=== PATIENT | female | born 1995 | race Caucasian/White ===

== ENCOUNTER 2021-12-11 01:18 | Emergency (ER) | payer MEDICARE, MEDICAID, SELFPAY ==
--- NOTE | ~2021-12-11 | XR_ITS ---
EXAMINATION: XR chest 2V DATE: 12/11/2021 03:31 INDICATION: Dyspnea. TECHNIQUE: Frontal and lateral views of the chest were obtained. COMPARISON: None. FINDINGS: The chest demonstrates clear lungs without pneumonia, pleural effusion, or pneumothorax. Th e heart size is normal. IMPRESSION: 1. No acute cardiopulmonary disease. Reviewed, dictated and finalized at location A.
[2021-12-11 01:32] VITALS: BP 133/83; PULSE 79; RESP 19; O2SAT 100
[2021-12-11 01:39] VITALS: BP 127/75; PULSE 89; RESP 16; O2SAT 100
[2021-12-11 01:40] VITALS: PULSE 82
--- NOTE | 2021-12-11 02:10 | ECG_ITS ---
Measurements Intervals [place] Rate: 75 P: 59 LA: 149 QRS: 35 QRSD: 89 T: 38 QT: 350 QTc: 393 Interpretive Statements SINUS RHYTHM WITH SINUS ARRHYTHMIA NONSPECIFIC T-WAVE ABNORMALITY DELAYED R-WAVE PROGRESSION ABNORMAL ECG NO PREVIOUS ECG AVAILABLE FOR COMPARISON Electronically Signed On 12-11-2021 10:25:18 CDT by Hamilton Dejesus M.D.
--- NOTE | 2021-12-11 02:14 | ED.SOB ---
HPI - SOB/Dyspnea General Chief Complaint: Shortness of Breath/Dyspnea Stated Complaint: SOB, Chest tightness Time Seen by Provider: 12/11/21 01:54 Source: patient History of Present Illness HPI Narrative: Patient presents with shortness of breath and chest pain. Patient ports she has had symptoms for several weeks tonight was more severe so she came to the ER for further evaluation. Pain is a squeezing sensation associated with shortness of breath denies cough she does report a fever denies any nausea vomiting or diarrhea. Reports a history of asthma and she is been using her rescue inhaler with some improvement in her symptoms. She was seen in [place] emergency room yesterday for symptoms she does not remember what she was diagnosed with. Review of Systems Review of Systems: CONSTITUTIONAL: Denies fever, chills, or sweats. EYES: Denies visual changes, redness, or discharge. ENT: Denies rhinorrhea, congestion, sore throat, or otalgia. CARDIOVASCULAR: Denies palpitations, or edema. RESPIRATORY: Reports shortness of breath GASTROINTESTINAL: Denies abdominal pain, nausea, vomiting, or diarrhea. GENITOURINARY: Denies dysuria or hematuria. SKIN: Denies rash or itching. MUSCULOSKELETAL: Denies back pain, joint pain, or myalgia. NEUROLOGIC: Denies headache, numbness, dizziness, or weakness. PSYCHIATRIC: Denies anxiety or depression. All systems reviewed & are unremarkable except as noted in HPI and below Exam Narrative: GENERAL: Well-appearing, well-nourished, and in no acute distress. HEAD: Normocephalic, atraumatic. EYES: PERRLA and EOMI. ENT: Nares clear, no rhinorrhea or epistaxis. Mucous membranes moist. NECK: Supple. No masses. No JVD CHEST: Clear to auscultation. No respiratory distress. No wheezes rales or rhonchi HEART: Regular rate and rhythm. No murmur heard. Normal peripheral pulses. ABDOMEN: Soft, nontender, nondistended, normal active bowel sounds. EXTREMITIES: Normal range of motion. No edema. SKIN: Warm, dry, no rash. NEURO: No focal deficits. Alert and oriented x3. PSYCH: Normal mood and affect. Course Reevaluation(s) Reevaluation #1: Patient updated on results thus far. Patient reports breathing treatments did not help. Feels like she now has a sore throat and would like a strep swab which was ordered significant erythema or exudates appreciated on exam Date: 12/11/21 Time: 03:39 Reevaluation #2: Patient resting comfortably results plan reviewed with patient. Patient comfortable with outpatient plan. Date: 12/11/21 Time: 04:13 Vital Signs Vital signs: Vital Signs Pulse Rate 79 12/11/21 01:32 Respiratory Rate 19 12/11/21 01:32 Blood Pressure 133/83 12/11/21 01:32 Pulse Oximetry 100 12/11/21 01:32 Oxygen Delivery Room Air 12/11/21 01:32 Pulse Rate 82 12/11/21 04:36 Respiratory Rate 16 12/11/21 04:36 Blood Pressure 113/81 12/11/21 04:36 Pulse Oximetry 100 12/11/21 04:36 Oxygen Delivery Room Air 12/11/21 01:32 MDM - SOB/Dyspnea MDM Narrative Medical decision making narrative: H&P as above, vss, pt looks clinically well, exam with clear lungs, labs clinically unremarkable patient declined COVID swab, img without acute process, additional labs/img considered, symptomatic relief available as needed, on reevaluation pt continues to looks clinically well. Symptoms remain of unclear etiology, dns pneumonia, severe sepsis, airway compromise, dissection, pneumothorax, ACS, PE plan to tx/monitor as op w/ pcm f/u findings/plan discussed with pt, pt agree/comfortable with plan, return precautions given Lab Data Result diagrams: 12/11/21 02:18 12/11/21 02:52 Labs: Lab Results 12/11/21 12/11/21 12/11/21 Range/Units 02:18 02:52 02:52 WBC 9.5 (4.5-10.0) K/mm3 RBC 4.71 (4.2-5.4) M/mm3 Hgb 14.2 (12.0-15.0) g/dL Hct 43.2 (37.0-47.0) % MCV 91.7 (80-100) fl MCH 30.1 (26-34) pg MCHC 32.9 (32-36) g/dl RD
[2021-12-11 02:24] LABS: Basophils Percent Auto 0.4 % (0.2-1.2); Eosinophils Absolute Auto 0.1 K/mm3 (0-0.3); Eosinophils Percent Auto 1.1 % (0-4.4); Hematocrit 43.2 % (37.0-47.0); Hemoglobin 14.2 g/dL (12.0-15.0); Immature Granulocyte Absolute 0.03 K/mm3 (0.00-0.031); Immature Granulocyte Percent A 0.3 % (0-0.5); Lymphocytes Absolute Auto 2.87 K/mm3 (0.9-3.2); Lymphocytes Percent Auto 30.1 % (18.3-44.2); Mean Corpuscular HGB Conc 32.9 g/dl (32-36); Mean Corpuscular Hemoglobin 30.1 pg (26-34); Mean Corpuscular Volume 91.7 fl (80-100); Mean Platelet Volume 10.3 fl (7.4-10.4); Monocytes Absolute Auto 0.6 K/mm3 (0.1-0.6); Monocytes Percent Auto 6.6 % (2.6-8.5); Neutrophils Absolute Auto 5.9 K/mm3 (1.3-6.7); Neutrophils Percent Auto 61.5 % (45.5-73.1); Platelet Count Result 213 k/mm3 (150-375); Red Blood Count 4.71 M/mm3 (4.2-5.4); Red Cell Distribution Width 12.5 % (11.5-14.5); White Blood Count 9.5 K/mm3 (4.5-10.0)
[2021-12-11 03:02] VITALS: PULSE 80; RESP 21
[2021-12-11] MEDS: IPRATROPIUM BR 0.02% INH SOLN 0.5 MG/2.5 ML VIAL INHALATION (03:02)
[2021-12-11] MEDS: ALBUTEROL SULFATE NEB 2.5 MG/3 ML INH 5 MG INHALATION (03:02)
[2021-12-11 03:09] VITALS: PULSE 83; RESP 19
[2021-12-11 03:11] LABS: Alanine Aminotransferase 16 U/L (6-35); Albumin Level 3.9 g/dL (3.5-5.1); Alkaline Phosphatase 64 U/L (38-126); Anion Gap 6 mmol/L (8-16); Aspartate Amino Transferase 22 U/L (14-36); Bilirubin,Total 0.4 mg/dL (0.2-1.3); Blood Urea Nitrogen 11 mg/dL (7-17); Calcium 8.9 mg/dL (8.4-10.2); Carbon Dioxide 25 mmol/L (22-30); Chloride 109 mmol/L (98-107); Estimated CRCL calculation 96 ml/min; Estimated Glomerular Filt Rate > 60; Glucose 100 mg/dL (65-110); Potassium 3.7 mmol/L (3.4-5.0); Sodium 140 mmol/L (137-145)
[2021-12-11 03:23] LABS: Troponin I < 0.012 ng/mL (0.000-0.034)
[2021-12-11 04:36] VITALS: BP 113/81; PULSE 82; RESP 16; O2SAT 100
== END 2021-12-11 04:37 | disposition home or self-care (01) ==
PROVIDERS: Emergency Provider Emergency Medicine
DX: R06.02 Shortness of breath (principal); R94.31 Abnormal electrocardiogram [ECG] [EKG]
CPT/HCPCS: 36415; 71046; 80053; 84484; 85025; 87081; 87880; 93005; 94640; 99284

== ENCOUNTER 2024-08-31 22:18 | Emergency (ER) | payer MEDICARE, MEDICAID, SELFPAY ==
--- NOTE | ~2024-08-31 | XR_ITS ---
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 Comparison: 12/11/2021. RESULT: Lines, tubes, and devices: None. Lungs and pleura: Low volumes with crowding. Slight rotation. No focal consolidation, pleural effusi on, or pneumothorax. Cardiomediastinal silhouette: Stable. Other: No acute osseous or upper abdominal finding. IMPRESSION: No acute cardiopulmonary process. Reviewed, dictated and finalized at location K. [employer] G[employer]ERING EDITOR
--- NOTE | ~2024-08-31 | CT_ITS ---
EXAMINATION: CT brain wo con DATE: 08/31/2024 23:42 INDICATION: seziure? . TECHNIQUE: Computed tomography (CT) of the head was performed without intravenous contrast. The mA wa s adjusted according to patient size. Iterative reconstruction technique was employed. The dose-lengt h product was 605.33 mGy-cm. COMPARISON: None. FINDINGS: Exam limited by mild motion and nonstandard positioning. No acute intracranial hemorrhage or extra-axial fluid collection. No hydrocephalus, mass, or herniation. No acute ischemic infarct. Unremarkable dural venous sinus attenuation. No acute osseous abnormality. Left inferior frontal and ethmoid mucosal thickening. Bilateral maxillary mucosal thickening with air -fluid levels. The remaining aerated spaces are clear. IMPRESSION: No acute intracranial process. CT findings suggestive of acute bilateral maxillary sinusitis. Reviewed, dictated and finalized at location K. [employer] BUILDER
[2024-08-31 22:05] VITALS: BP 136/84; PULSE 86; RESP 15; TEMP 37.4; O2SAT 100
--- NOTE | 2024-08-31 22:29 | ECG_ITS ---
Test Date: 2024-08-31 22:46:22 Measurements Intervals [place] Rate: 78 P: 28 IN: 168 QRS: 11 QRSD: 89 T: 8 QT: 347 QTc: 396 Interpretive Statements SINUS RHYTHM DELAYED PRECORDIAL R/S TRANSITION BORDERLINE T WAVE ABNORMALITY- ANTERIOR LEADS BASELINE ARTIFACT- I, II, III, AVR, AVL, AVF, V1, V3 BORDERLINE ECG No previous ECG available for comparison Electronically Signed On 09-01-2024 06:48:12 DRIVER EXAMINER by Scott Mcnamara D.O.
[2024-08-31] MEDS: SODIUM CHLORIDE 0.9% IV 1,000 ML 999 ML IV CONT (22:40)
[2024-08-31 22:51] LABS: Basophils Absolute Auto 0.1 K/mm3 (0.0-0.1); Basophils Percent Auto 0.5 % (0.2-1.2); Eosinophils Absolute Auto 0.2 K/mm3 (0-0.3); Eosinophils Percent Auto 2.1 % (0-4.4); Hematocrit 42.4 % (37.0-47.0); Hemoglobin 14.2 g/dL (12.0-15.0); Immature Granulocyte Absolute 0.04 K/mm3 (0.00-0.031); Immature Granulocyte Percent A 0.4 % (0-0.5); Lymphocytes Absolute Auto 2.18 K/mm3 (0.9-3.2); Mean Corpuscular HGB Conc 33.5 g/dl (32-36); Mean Corpuscular Hemoglobin 29.3 pg (26-34); Mean Corpuscular Volume 87.4 fl (80-100); Mean Platelet Volume 9.3 fl (7.4-10.4); Monocytes Absolute Auto 0.5 K/mm3 (0.1-0.6); Monocytes Percent Auto 5.4 % (2.6-8.5); Neutrophils Absolute Auto 6.9 K/mm3 (1.3-6.7); Neutrophils Percent Auto 69.6 % (45.5-73.1); Platelet Count Result 236 k/mm3 (150-375); Red Blood Count 4.85 M/mm3 (4.2-5.4); Red Cell Distribution Width 13.2 % (11.5-14.5); White Blood Count 9.9 K/mm3 (4.5-10.0)
--- OUTSIDE RECORDS SUMMARY | 2024-08-31 22:56 | XMS_ITS | Data Portability ---
Author Organization [facility] Address [address] [place] [address] Assessment Encounter Date Assessment Date Assessment LastModified by Organization Details LastModified Time 04/25/2022 04/25/2022 Annual gynecological exam performed. Patient will come back in a year unless there are new symptoms. Not available 04/25/2022 11:57:56 Plan of Treatment Reminders Order Date Submit Date Provider Last Modified By Organization Details Last Modified Time Details Appointments None record ed. Lab None record ed. Referral None record ed. Procedures None record ed. Surgeries None record ed. Imaging None record ed. Medication Orders None record ed. Patient TargetsNo targets recorded. Patient InstructionsNo instructions recorded. Reason for Referral None Reported. 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 FINAL DIAGN OSIS: Negat miki for Intra epith elial Lesio n or Anil reid (NIL) . Elect kehinde queen angel d by Heidi Mariscal, CT on 05/01 at 6:57 AM ----- ----- ----- ----- ----- ----- ----- ----- ----- ----- ----- ----- ----- ----- ----- ----- ----- ---- COMME NT: Note: This speci men was revie wed by a Cytot echno logis t and/o r Patho logis t (as indic ated in this repor t) after evalu ation using the Thinp rep Imagi ng Syste m. CLINI SARAH INFOR MATIO N: Menst rual Statu s: LMP (if appli cable ): Clini sarah Histo ry/Pr eviou s Pap: Type of Neopl yogi (if appli cable ): Signi fican t Clini sarah Findi ngs: Other Histo ry: Hormo sumit (if appli cable ): PAP EDUCA KAIDEN L NOTE: The Pap Test is a scree graham test with an inher ent false negat miki rate. Liqui d-bas ed sampl ing may decre ase, but will not elimi aspen, false negat miki resul ts. A negat miki resul t does not precl ude the prese nce and/o r devel opmen t of disea se, since the prese nce of abnor mal cells in the sampl e depen ds on the locat ion of the lesio n and sampl ing techn ique. Justin nued regul ar scree graham is the best metho d of cance r preve ntion . If repor salina cytol ogic findi ng do not corre late with physi sarah and/o r histo rical findi ngs, furth er inves tigat ion is recom mikel d, as clini radha grace nted. Not Available [facility] [address] [place], [address], 05/01/2022 08:00:20 04/25/20 22 04/25/2022 CT/GC (PATRICK) , THINP REP VIAL chlamydia trachomatis, PCR Negati ve negati ve Not Available [facility] [address] [place], [address], 05/01/2022 08:00:21 04/25/20 22 04/25/2022 CT/GC (PATRICK) , THINP REP VIAL neisseria gonorrhoeae, PCR Negati ve negati ve Not Available [facility] [address] [place], [address], 05/01/2022 08:00:21 04/25/20 22 04/25/2022 TRICH OMONA S VAGIN JOHN PAUL (RRNA ) trichomonas vaginalis ribosomal RNA (rrna) Negati ve negati ve Not Available [facility] [address] [place], [address], 05/01/2022 08:00:22 Result Notes None recorded. Procedures Surgical History Date Name Laterality Status Provider Name and Address Organization Details Recorded Time 5 Dilation and Curettage completed [facility] 04/25/2022 12:14:11 Imaging Results None recorded. Procedure Notes None recorded. Medical Equipment None Reported. Allergies No known drug allergies Medications Name Sig Start Date Stop Date Status Note LastModified by Organization Details LastModified Time buspirone 5 mg tablet TAKE 1 TABLET BY MOUTH TWICE DAILY active Not Available Not Available No t Available ondansetron HCl 4 mg tablet TAKE 1 TABLET BY MOUTH EVERY 8 HOURS active Not Available Not Available No t Available sertraline 100 mg tablet TAKE 2 TABLETS BY MOUTH ONCE DAILY 04/25 completed Not Available Not Available Not Available famotidine 20 mg tablet TAKE 1 TABLET BY MOUTH EVERY 12 HOURS FOR 10 DAYS active Not Available Not Available No t Available ergocalcife rol (vitamin D2) 1,250 mcg (50,000 unit) capsule TAKE 1 CAPSULE BY MOUTH ONCE A WEEK active Not Available Not Available No t Available hydroxyzine pamoate 25 mg capsule TAKE 1 TO 3 CAPSULES BY MOUTH ONCE DAILY NEEDED FOR ANXIETY AND FOR SLEEP active Not Available Not Available No t Available bupropion HCl XL 300 mg 24 hr tablet, extended release TAKE 1 TABLET BY MOUTH ONCE DAILY IN THE MORNING active Not Available Not Available No t Available bupropion HCl XL 150 mg 24 hr tablet, extended release TAKE 1 TABLET BY MOUTH ONCE DAILY IN THE MORNING WITH 300MG TABLET 04/25 completed Not Available Not Available Not Available topiramate 50 mg tablet TAKE 1 TABLET BY MOUTH ONCE DAILY active Not Available Not Available No t Available nitrofurant oin monohydrate /macrocryst als 100 mg capsule TAKE 100MG BY ORAL ROUTE EVERY 12 HOURS FOR 7 DAYS. 04/25 completed Not Available Not Available Not Available Vitals Date Recorded Body height Body weight Systolic blood pressure Diastolic blood pressure Provider Name and Address Organization Details Last Updated DateTime 04/25/2022 161.29 cm 07303.1 g 130 mm[Hg] 80 mm[Hg] Estella Vicente Duran [facility] 04/25/2022 12:10:15 Social History Question Answer Notes LastModified by Organizat ion Details LastModified Time Tobacco Smoking Status Never Smoker [facility] 04/25/2022 12:13:50 Do You Have An Advance Directive? Yes Information not available 04/25/2022 What Is Your Level Of Alcohol Consumption? None Information not available 04/25/2022 Are You Blind Or Do You Have Difficulty Seeing? No Information not available 04/25/2022 What Is Your Level Of Caffeine Consumption? None Information not available 04/25/2022 Are You Deaf Or Do You Have Serious Difficulty Hearing? No Information not available 04/25/2022 What Type Of Diet Are You Following? REGULAR Information not available 04/25/2022 Do You Use Your Seat Belt Or Car Seat Routinely? Yes Information not available 04/25/2022 Do You Have Smoke And Carbon Monoxide Detectors In Your Home? Yes Information not available 04/25/2022 Do You Feel Stressed (tense, Restless, Nervous, Or Anxious, Or Unable To Sleep At Night)? [id number] Information not available 04/25/2022 Do You Use Any Illicit Or Recreational Drugs? No Information not available 04/25/2022 Sex: Unknown Functional Status Question Answer Note LastModified by Organizat ion Details LastModified Time Do you have difficulty walking or climbing stairs? No Information not available 04/25/2022 Are you able to walk? YESWOREST Information not available 04/25/2022 Are you able to care for yourself? Yes Information not available 04/25/2022 Do you have difficulty dressing or bathing? No Information not available 04/25/2022 What is your exercise level? Moderate Information not available 04/25/2022 Mental Status None recorded. Family History Relationship Description Onset Age of this Age Resolved Age Notes LastModified by Organization Details LastModified Time Mother Asthma Not available 12:12:39 Mother Hypertensive disorder Not available 2021 12:12:45 Maternal Grandmother Heart disease Not available 2021 12:12:52 Paternal Grandmother Malignant tumor of lung Not available 2021 12:13:00 Maternal Aunt Malignant tumor of cervix Not available 2021 12:13:09 Maternal Aunt Malignant neoplasm of uterus Not available 2021 12:13:18 Paternal Uncle Malignant tumor of lung Not available 2021 12:13:28 Medical History Condition Response Anxiety Disorder Y Depression/ depression Y Gynecological History Statement/Question Response Abnormal Pap N Sexually Active? Y STIs/STDs Y Menses Monthly N Age of first menstrual cycle 10 HPV Vaccine N Date of Last Pap Smear Sexual Problems? N Current Control Method IUD LMP Unknown Obstetrics History GPAL:G 2 P 0 0 1 1 Type Value Spontaneous 1 Living 1 Total 2 Past Encounters Encounter ID Performer Location Encounter Start Date Encounter Closed Date Diagnosis/Indication Diagnosis SNOMED-CT Code Diagnosis ICD10 Code Diagnosis Note [id number] [employer]UM[employer] [place] [address] [address] 04/25/2022 11:26:13 04/25/2022 12:17:26 Gynecologic examination 83035912 Z01.419 Take Calcium with Vitamin D 1200mg daily if not receiving in daily diet. It is strongly advised to have an annual flu shot and up can obtain at most pharmacies . If you have not had a TDap shot in the last 10 years you should obtain one as well. Discussed with patient & provided with informatio n regarding Gardisil vaccine to prevent the 4 strains for HPV that cause cervical cancer if under age 26. Encourage safe sexual practices, to use condoms and limit partners if not already in a monogamous relationsh ip. Do monthly self breast exams. Have mammogram yearly or every other year depending on family history. BRCA testing is now available for patients with strong genetic history of female cancer. If interested contact the office. Engage in daily exercise of low impact aerobic exercise 45-60 minutes 4-5 times weekly. Avoid tobacco and illicit drugs as well as using moderation with alcohol intake less than 1-2 8 oz beverages daily. This lifestyle behavior pattern will lead to less health conditions and longer life span. If BMI greater than 25 weight watchers or dietary consult advised. Patient received above instructio ns, and questions have been answered. If you have any questions please call or respond to this email. Patient was made aware of the patient portal and may obtain a paper copy of today's plan if desired. Pap/hpv sent STD Screen sent Genetic Screen discussed Colon Screen na Dexa Screen na Routine Labs PCPMammo Adis Mirena IUD prevents for up to 8 years, and also helps with heavy periods for up to 5 years in women who choose an IUD for control. Health Concerns Section Related Observation LastModified by Organization Detai ls LastModified Time None Recorded Concern Status LastModified by Organization Details LastModified Time None Recorded Advance Directives Directive Y: Payers Encounter Date Sequence Insurance Name Policy Number Policy Biggs Covered Member ID Biggs Member ID Guarantor Name 04/25/2022 2 [place] [employer] Sae Alvarez [id number] Sae Alvarez 04/25/2022 1 [place] Sae Alvarez [id number] Sae Alvarez Notes Date Note Type Note Provider Name and Address Organization Details Recorded Time 04/25/2022 text/html Annual GYNReport ed bypatient.History: no gynecologic complaints Menstrual cycle:Normal menses (Amenorrheic per IUD) Urinary symptoms:No hematuria; No incontinence Vulva:No genital lesion Vagina:Normal vaginal discharge Breast:No breast pain; No breast lump; No nipple discharge Current Contraception:Sati sfied with current contraception; Intrauterine device (iud) Sexual complaints:No sexual complaints; No pain during intercourse; Normal libido Menopausal Symptoms:No menopausal symptoms; Normal vaginal lubrication Psychological symptoms:No depression; No anxiety; No PMDD Preventive measures:Encourage self breast examination; Encourage regular exercise; Encourage no tobacco use; Encourage regular mammograms starting age 40; Followed with yearly pap smears Viki Corbett, [facility]- [address], [place], [address], [facility] 04/25/2022 17:22:16 OBGyn Episode Ob Episode Information Episode Created Date Number of Fetuses Patient Bloodtype Patient rh Status Prepregnancy Weight lbs Domestic Partner Domestic Partner Phone Father Name Lockstitch Waistband Setter Status 04/25/20 22 1 CLOSED Fetus Data First Name Last Name Admitted to NICU Weight (g) Sex Living Outcome Pediatric Complications Fetus ID Race Codes Race Delivery Type [id number] Vaginal Delivery Charlie Calculation Initial Charlie Date Initial Exam Date Initial Exam Provider Initial Ultrasound Date Last Menstrual Period Date Ultra Sound Weeks Gestation 0 Eighteen To Twenty Week Charlie Update Ultra Sound Date Fundal Height At Umbil Quickening Date Ultra Sound Latest Weeks Gestation Final Charlie Confirmed By Final Charlie Confirmed Date Final Charlie Date Ultra Sound Latest Days Gestation 0 0 Menstrual History Last Menstrual Date Menses Monthly On Bcp Conception Prior Menses Frequency Hcg Plus Date Menarche Onset Age Delivery Information Delivery Date Delivery Type Labor Anesthesia Weeks Gestation Incision Type Labor Labor Length Hrs Delivered By Post Complications Tubal Sterilization Discharge Date Comments 7 Discharge Information Feeding Method Contraceptive Method Maternal HG B and HCT Levels Ob Episode Information Episode Created Date Number of Fetuses Patient Bloodtype Patient rh Status Prepregnancy Weight lbs Domestic Partner Domestic Partner Phone Father Name Lockstitch Waistband Setter Status 04/25/20 22 1 CLOSED Fetus Data First Name Last Name Admitted to NICU Weight (g) Sex Living Outcome Pediatric Complications Fetus ID Race Codes Race Delivery Type , Spontane ous [id number] Charlie Calculation Initial Charlie Date Initial Exam Date Initial Exam Provider Initial Ultrasound Date Last Menstrual Period Date Ultra Sound Weeks Gestation 0 Eighteen To Twenty Week Charlie Update Ultra Sound Date Fundal Height At Umbil Quickening Date Ultra Sound Latest Weeks Gestation Final Charlie Confirmed By Final Charlie Confirmed Date Final Charlie Date Ultra Sound Latest Days Gestation 0 0 Menstrual History Last Menstrual Date Menses Monthly On Bcp Conception Prior Menses Frequency Hcg Plus Date Menarche Onset Age Delivery Information Delivery Date Delivery Type Labor Anesthesia Weeks Gestation Incision Type Labor Labor Length Hrs Delivered By Post Complications Tubal Sterilization Discharge Date Comments 5 Discharge Information Feeding Method Contraceptive Method Maternal HG B and HCT Levels
--- OUTSIDE RECORDS SUMMARY | 2024-08-31 22:57 | XMS_ITS | Patient Health Summary ---
Author Organization [facility] Address [address] [place] [address] Care Team Providers Care Charge Manager Name Role Phone Joanne Wharton MD Primary Care Provider [phone] Note from [facility],non-owned Affiliates and Associated Physician Practices is amultiple site organization consisting of ambulatory clinics and hospital sitesin [place], [place], [place] and [place]. This disclosure is being madepursuant to the Care Everywhere program and may not contain all information available regarding this patient. Last updated 18.[facility] [employer] Allergies No known active allergies Medications * Be aware that medications may not be up to date on this document. Alwaysverify current medications with the patient. * sertraline (ZOLOFT) 100 MG tablet Take 150 mg by mouth once daily. 1 1/2 tabs * drospirenone-ethinyl estradiol (KIMBER) 3-0.02 MG tablet Take 1 Tab by mouth once daily. * ALBUTEROL IN Inhale 3 Puffs by mouth as needed. Active Problems Problem Noted Date Diagnosed Date Transient alteration of awareness 12/11/2012 Social History Tobacco Use Types Packs/Day Years Used Date Smoking Tobacco: Never Assessed Sex and Gender Information Value Date Recorded Sex Assigned at Not on file Gender Identity Not on file Sexual Orientation Not on file Last Filed Vital Signs Vital Sign Reading Time Taken Comments Blood Pressure 102/80 12/11/2012 10:36 AM CDT Pulse - - Temperature - - Respiratory Rate - - Oxygen Saturation - - Inhaled Oxygen Concentration - - Weight 69.3 kg (152 lb 12.8 oz) 013 10:36 AM CDT Height 160.5 cm (5' 3.19 ) 12/11/2012 1 0:36 AM CDT Body Mass Index 26.91 12/11/2012 10:36 AM CDT Procedures * EEG(Performed 12/24/2012) Performed for Seizure (HCC) * GROSS + MICRO EXAM(Performed 1995) Results * EEG (12/24/2012 12:00 PM CDT) 12/24/2012 12:0 0 PM CDT Narrative [facility] - 12/26/2012 1:32 PM CDT A scan was deleted from the Results section by S Interface [[id number]] on 12/26/2012 at 1:32 PM (File: [id number]) Transcriptions Santos Pickard MD - 12/24/2012 7:50 PM CDT [address] [address] CLINICAL NEUROPHYSIOLOGY NAME: SAE SALGADO : 1995 AD[address]: [address] [place] [address] UNIT #: [id number] CSN #: [id number] DATE OF TEST: 12/24/2012 COMPLIANCE PROJECT MANAGER: Santos Pickard MD This is an EEG being performed with sleep deprivation in a young man witha history of defiant behavior and recent episodes of shaking of the handsand staring. There were 3 clusters back in November. He is on Zoloft andTrileptal at the time of the recording. The recording begins with the patient in a wakeful state. There is areactive and symmetric posterior dominant rhythm with frequencies of 9-10 Hz and amplitudes of 30-50 mV. A well-organized anteroposterior gradient isalso identified. In an extended period of drowsiness there is attenuation in the waking background with an increase in higher amplitude and sharply contouredrhythmic theta and at times delta activity seen bifrontally. Also noted are lowerbeta rhythms seen posteriorly. No formal sleep state is entered. Hyperventilation produces a modest slowing of the waking backgroundwithout any epileptiform accompaniment. Photic stimulation produces a modestdriving response at middle frequencies bilaterally. IMPRESSION: This is a normal EEG for age in the wakeful and drowsy state. Nolocalizing, lateralizing or epileptiform features are present. Clinical correlationis suggested as this does not exclude seizure as an etiology for thechild's shaking events. Dictated By: Santos Pickard MD SG/MedQ JOB ID: [id number] cc: Devante Pitt MD CLINICAL NEUROPHYSIOLOGY Document, Scanned - 12/26/2012 1:32 PM CDT Milka Davis MD NEUROLOGY ORDERABLES [facility] * GROSS + MICRO EXAM (1995 3:00 PM PROMOTIONAL MARKETING ANALYST) Result CASE NUMBER [id number] [facility] PATH REPORT Comment: ORDERING PHYSICIAN VIRGINIA ROSENTHAL SPECIMEN TYPE Placenta CLINICAL HISTORY GROSS DESCRIPTION CLINICAL DATA Gestational Age 33 Weight 2.5 RDS X Facies Congenital Anomalies MOTHER Age 19 Grav 1 Para 1 Ab 0 Hypertension Bleeding X Oligohydramnios Infection Polyhydramnios Previous Stillbirths Labor/Duration Diabetes Additional Comments 50% abruptio. The specimen labeled Gera, Girl and placenta and cord is received fresh and consists of a placenta measuring 13.9 x 14.1 cm. The placental thickness is 3.0 cm. The umbilical cord measures 21.5 cm. in length and 1.0 cm. in diameter. There are no true or false knots. The umbilical cord surface is white-harrell and glistening. The umbilical cord attachment is eccentric with the nearest margin at 2.8 cm. There are three umbilical cord vessels. The membranes are torn. The shortest length is 2.3 cm. The longest length is approximately 18 cm. Small areas of blood clot are found attached to the extracoreal membranes. The attachments are circumvallate (approximately 300 degrees). The appearance of the membranes is pink-harrell and glistening. There are extensive areas of fibrin deposition found on the maternal surface adjacent to the attachment of the circumvallate membranes. The surface is blue-quinn with extensive areas of fibrin deposition. It has a concave appearance. The maternal surface is convexed and consists of boggy cotyledons. There is one area of laceration on the maternal surface. Section surfaces confirms the presence of extensive fibrin deposition at the surface and near the attachments of the membranes. The placental weight after trimming is approximately 365 grams. Game Room Attendant sections of the placenta near the membrane attachment are submitted as A1 and A2 . Game Room Attendant sections of the umbilical cord and membranes are submitted as A3 . Game Room Attendant sections of the placenta from the middle of the placenta is submitted as A4 . (SE/akn) [facility], [address] [place] [address] MICROSCOPIC DESCRIPTION 3 H/E Sections of the placenta show villi with maturation consistent with a 33 week gestation. However, calcification is increased for this gestational age. Perivillous fibrin deposition is present, particularly in the extrachorial portion of the placental disk. Sections of the umbilical cord show a three vessel cord with calcified omphalomesenteric remnants. (SE/mjma) DIAGNOSIS DIAGNOSIS PLACENTA, CORD AND MEMBRANES 1) Circumvallate placenta (33 weeks gestation, weight 365 g, feto-placental ratio 6.6 expected 5.3-6.0). 2) Increased calcification (see microscopic description). 3) Extrachorial fibrin deposition. 4) Calcified omphalomesenteric remnants. [employer]ision Agriculture Technician Soco Grayson RESIDENT IN PATHOLOG Hemal aGbriel M.D. PATHOLOGIST Dick Burks M.D. ELECTRONICALLY Dick Garcia MISCELLANEOUS SAMPLES / Unknown 1995 3:00 PM PROMOTIONAL MARKETING ANALYST 1995 9:18 AM PROMOTIONAL MARKETING ANALYST Historical Provider LAB - PATHOLOGY/C YTOLOGY ORDERABLES [facility] PATH REPORT Care Teams Charge Manager Relationship Specialty Start Date End Date Joanne Wharton MD [address] [place] [address] [place] [address] PCP - General Pediatrics 12/10/12
--- OUTSIDE RECORDS SUMMARY | 2024-08-31 22:57 | XMS_ITS | Clinical Summary ---
Author Organization [facility] Address [address] [facility] [place] [address] Care Team Providers Care Cone Classifier Tender Name Role Phone Joanne Wharton MD Primary Care Provider Source Comments [facility],non-owned Affiliates and Associated Physician Practices is amultiple site organization consisting of ambulatory clinics and hospital sitesin [place], [place], [place] and [place]. This disclosure is being madepursuant to the Care Everywhere program and may not contain all information available regarding this patient. Last updated 18.[facility] Allergies No known active allergies Medications * Be aware that medications may not be up to date on this document. Alwaysverify current medications with the patient. Medication Sig Dispensed Refills Start Date End Date Status sertraline (ZOLOFT) 100 MG tablet Take 150 mg by mouth once daily. 1 1/2 tabs Active drospirenone-ethinyl estradiol (KIMBER) 3-0.02 MG tablet Take 1 Tab by mouth once daily. Active ALBUTEROL IN Inhale 3 Puffs by mouth as needed. Active Active Problems Problem Noted Date Diagnosed Date [...] Mass Index 26.91 12/11/2012 10:36 AM CDT Plan of Treatment Health Maintenance Due Date Last Done Comments PAP SMEAR 1995 HIV SCREENING 2010 HEPATITIS C SCREENING 06/25/2013 DTAP/TDAP/TD VACCINES (1 - Tdap) 2014 HEPATITIS B VACCINE (1 of 3 - 19+ 3-dose series) 2014 COVID-19 VACCINE (1 - 2023-2 5 season) 2024 INFLUENZA VACCINE (#1) 2024 DEPRESSION SCREENING 07/08/2024 ZOSTER VACCINE (1 of 2) 2045 HIB VACCINE Aged Out No longer eligi ble based on patient's age to complete this topic HPV VACCINE Aged Out No longer eligi ble based on patient's age to complete this topic MENINGOCOCCAL (Group B) VACCINE Aged Out No longer eligible based on patient's age to complete this topic MENINGOCOCCAL VACCINE Aged Out No shelbi rod eligible based on patient's age to complete this topic PNEUMOCOCCAL VACCINE Aged Out No long er eligible based on patient's age to complete this topic Care Teams Cone Classifier Tender Relationship Specialty Start Date End Date Joanne Wharton MD [address] [place] [id number] PCP - General Pediatrics 12/10/12
--- OUTSIDE RECORDS SUMMARY | 2024-08-31 22:57 | XMS_ITS ---
Author Organization [facility] Address [address] [place] [address] Care Team Providers Care Building Maintenance Worker Name Role Phone Buster Gomez Primary Care Provider [phone] Allergies No Known Allergies REASON FOR VISIT f/u & paperwork Medications Medication SIG (Take, Route, Frequency, Duration) Notes Start Date End Date Status Zoloft 50 MG 1.5 tablet Orally Once a day for 30 days Active ARIPiprazole 10 MG 1 tablet Orally Once a day for 30 days Active Albuterol Sulfate (sensor) 108 (90 Base) MCG/ACT 1-2 puffs as needed Inhalation every 4 hrs for 30 days Active Topiramate has continued to take Not-Taking busPIRone HCl 5 MG Take 1 tablet by mouth twice daily for 30 please have contact office to have appointment scheduled Not-Taking hydrOXYzine Pamoate 25 MG 1-2 capsule at night Orally Once a day for 30 days As needed sleep Active Vitamin D (Cholecalciferol) 25 MCG (1000 UT) 1 tablet Orally Once a day for 30 days Active Social History Tobacco Use: Social History Observation Description Date Details (start date - stop date) Never Smoker NA - NA Sex Assigned At : Social History Observation Description Sex Assigned At Female Alcohol Screen (Audit-C) Question Answer Notes Did you have a drink containing alcohol in the p ast year? No Points 0 Interpretation Negative Tobacco Control (Standard) Question Answer Notes Tobacco use: Nonsmoker Vital Signs Weight 199.4 lbs 03/31/2024 Height 65 in 03/31/2024 BMI 33.18 kg/m2 03/31/2024 Blood pressure systolic 112 mm Hg 03/31/20 Blood pressure diastolic 80 mm Hg 024 Heart Rate 87 /min 03/31/2024 Oximetry 99 % 03/31/2024 Respiratory Rate 16 /min 03/31/2024 Encounters Encounter Location Date Provider Diagnosis [address] [place] [address] 03/31/2024 Buster Gomez MUSTAPHA (generalized anxiety disorder) F41.1 ; Viral URI with cough J06.9 ; Mild depression F32.0 ; Cerebral palsy G80.9 and Nutritional counseling Z71.3 Assessments Encounter Date Diagnosis (ICD Code) Assessment Notes Treatment Notes Treatment Clinical Notes Section Notes 03/31/2024 MUSTAPHA (generalized anxiety disorder) (ICD-10 - F41.1) 03/31/2024 Viral URI with cough (ICD-10 - J06.9) 03/31/2024 Mild depression (ICD-10 - F32.0) 03/31/2024 Cerebral palsy (ICD-10 - G80.9) FORM COMPLETED FOR MCT 03/31/2024 Nutritional counseling (ICD-10 - Z71.3) DISCUSS WEIGHT LOSS AT F/U APPT Plan Of Treatment Medication Medication Name Sig Start Date Stop Date Notes Zoloft 50 MG 1.5 tablet Orally On ce a day for 30 days ARIPiprazole 10 MG 1 tablet Orally Once a day for 30 days hydrOXYzine Pamoate 25 MG 1-2 capsule at night Orally Once a day for 30 days Next Appt Details Follow Up: 2 Weeks, Reason: FLU & COVID SHOTS, DISCUSS WT LOSS Progress Notes * Clifton ALVAREZOB: 5 (28 yo F)Acc No.[id number]:03/31/2024 Progress Notes Patient: Trinity JOHNHarmanSae Provider: Garrison Gomez :1995 A ge:28 Y S ex:Female Date:03/31/2024 Address:[address] [place], [place] [id number] Check In:10:18 AM SALVAGE CLERK Subjective: * Chief Complaints: * F /u & paperwork * HPI: I nterim History: meds still working well.. HAS UR CONGESTION FOR TWO DAYS. COUGH. YELLOW SPUTUM. TEMP TO 100 2 NIGHTS AGO. DAUGHER WAS ILL. 7 Y/O. HX ASTHMA. WOULD LIKE COVID AND FLU SHOT WOULIKE TO DISCUSS WT LOSS MEDS ALREADY DOING IN SHAPE. Emergency room visit N o. Was hospitalized N o. D epression Screening: PHQ-9 L ittle interest or pleasure in doing things?Several days F eeling down, depressed, or hopeless N ot at all T rouble falling or staying asleep, or sleeping too much N ot at all F eeling tired or having little energy S everal days P oor appetite or overeating S everal days F eeling bad about yourself or that you are a failure, or have let yourself or your family down N ot at all T rouble concentrating on things, such as reading the newspaper or watching television N ot at all M oving or speaking so slowly that other people could have noticed; or the opposite, being so fidgety or restless that you have been moving around a lot more than usual N ot at all T houghts that you would be better off or of hurting yourself in some way N ot at all T otal Score 3 I nterpretation M inimal Depression S creening: [place] Suicide Severity Rating Scale (LF) D o you want to initiate with S creener form 1 . Wish to be : Have you wished you were or wished you could go to sleep and not wake up? N o 2 . Suicidal Thoughts: Have you actually had any thoughts of killing yourself? N o 6 . Suicide Behaviour: Have you ever done anything,started to do anything, or prepared to end your life? N o I nterpretation: L ow Risk C SSRS Interpretation and Follow Up Plan: CSSRS Interpretation and Follow Up Plan. CSSRS Interpretation and Follow Up Plan C SSRS Screen documented using SF Y es M oderate or High risk requires selection of a follow up plan C SSRS No/Low: intervention not needed at this time * ROS: B asic ROS: Admits F atigue. A dmits F ever. A dmits P sychiatric Condition. * Medical History: * Surgical History: D enies Past Surgical History * Hospitalization/Major Diagno stic Procedure: c hild 2017 * Family History: F ather: alive. M other: alive. 1 brother(s) . 1 daughter(s) . . Paternal side- austim, possible other conditions that are unknown . * Social History: P rimary Social History: L iving Arrangement L iving Arrangement: D ependent Living L iving with: P arent(s) I s this a supportive environment? Y es Alcohol Use A lcohol Use Frequency: N ever Illicit Substance Usage I llicit Substance Usage: N o Employment Status E mployment Status: O n Disability Leisure: playing with daughter, favorite show at first sight. P ast Medication Use: D o you use nicotine other than cigarettes?: No. Past Psychiatric Medications: Depakote. Past Psychiatric Diagnoses: Anxiety disorder. T obacco Use: T obacco Control (Standard) T obacco use: N onsmoker S exual History: R elationship: engaged. D rugs/Alcohol: D rugs H ave you used drugs other than those for medical reasons in the past 12 months? N o Alcohol Screen (Audit-C) D id you have a drink containing alcohol in the past year? N o P oints 0 I nterpretation N egative Caffeine I ntake: m ore than [address] pepper Do you smoke marijuana?: Admits- marijuana vapes occasionally at night. Do you drink alcohol?: No. H ousehold: H ousehold M arital status: s liv N umber of adults in household: 4 N umber of children in household: 1 L evel of education: f inished high school M iscellaneous: M ethod of learning P referred method of learning: H earing * Medications: T akingVitamin D (Cholecalciferol) 25 MCG (1000 UT) Tablet 1 tablet Orally Once a day Albuterol Sulfate (sensor) 108 (90 Base) MCG/ACT Aerosol Powder Breath Activated 1-2 puffs as needed Inhalation every 4 hrs hydrOXYzine Pamoate 25 MG Capsule TAKE 1 TO 2 CAPSULES BY MOUTH ONCE DAILY IF NEEDED FOR ANXIETY AND FOR SLEEP Orally Once a day Zoloft 50 MG Tablet 1.5 tablet Orally Once a day ARIPiprazole 10 MG Tablet 1 tablet Orally Once a day Taking Vitamin D (Cholecalciferol) 25 MCG (1000 UT) Tablet 1 tablet Orally Once a day Taking Albuterol Sulfate (sensor) 108 (90 Base) MCG/ACT Aerosol Powder Breath Activated 1-2 puffs as needed Inhalation every 4 hrs Taking hydrOXYzine Pamoate 25 MG Capsule TAKE 1 TO 2 CAPSULES BY MOUTH ONCE DAILY IF NEEDED FOR ANXIETY AND FOR SLEEP Orally Once a day Taking Zoloft 50 MG Tablet 1.5 tablet Orally Once a day Taking ARIPiprazole 10 MG Tablet 1 tablet Orally Once a day Not- TakingbusPIRone HCl 5 MG Tablet Take 1 tablet by mouth twice daily , Notes to Pharmacist: please have contact office to have appointment scheduledTopiramate , Notes to Pharmacist: has continued to takeNot-Taking busPIRone HCl 5 MG Tablet Take 1 tablet by mouth twice daily , Notes to Pharmacist: please have contact office to have appointment scheduledNot-Taking Topiramate , Notes to Pharmacist: has continued to take * Allergies: N .K.D.A.no[Allergies Verified] Objective: * Vitals: I nitials: dt, Wt:199.4, Ht: 65, BMI:33.18, BP:112/80, HR:87, Oxygen sat %:99, RR:16, LMP: iud, Pain scale:8. * Examination: G eneral Examination: GENERAL APPEARANCE: w ell developed, well nourished, in no acute distress. HEAD: n ormocephalic, atraumatic. EYES: P ERRLA, sclera and conjunctiva clear. EARS External ears intact. NOSE: n sky patent, no lesions, septum intact. ORAL CAVITY: m ucosa moist. THROAT: n o erythema, no exudate, pharynx normal. NECK/THYROID: n o JVD, no goiter. SKIN: w arm and dry, no rashes. HEART: r egular rate and rhythm, no murmurs. LUNGS: r espirations regular and easy, clear to auscultation bilaterally. ABDOMEN: b owel sounds present, soft, nontender, nondistended, no masses palpable, no organomegaly . MUSCULOSKELETAL: n o joint deformity, swelling, redness, or warmth , LEROY upper and lower extremities. EXTREMITIES: n o clubbing, cyanosis, or edema. NEUROLOGIC: c ranial nerves 2-12 grossly intact. Assessment: * Assessment: 1. G AD (generalized anxiety disorder) - F41.1 2 . V iral URI with cough - J06.9 (Primary) 3 . M ild depression - F32.0 4 . C erebral palsy - G80.9 5 . N utritional counseling - Z71.3 Plan: * Treatment: 2. M ild depression Refill ARIPiprazole Tablet, 10 MG, 1 tablet, Orally, Once a day, 30 days, 30 Tablet, Refills 2.? 3. C erebral palsy Clinical Notes: FORM COMPLETED FOR MCT 4. N utritional counseling Clinical Notes: DISCUSS WEIGHT LOSS AT F/U APPT * Recommended Wellness and Pre vention Guidelines: * S tatus A lert L ast Done N ext Due A ction Taken N ONCOMPLIANT A sthma symptom assessment - 0 03/31/2024 - N ONCOMPLIANT C ervical cancer screening - 0 03/31/2024 - N ONCOMPLIANT I nfluenza vaccine (high risk) 1 07/15/2022 0 03/31/2024 - * Procedure Codes: 3 008F BODY MASS INDEX [id number] MEDICAL NUTRITION, INDIV, [id number] TOBACCO [id number] [facility] VISIT ESTABLISHED PATIENT * Preventive Medicine: Counseling: C are goal follow-up plan: BMI management provided Y es Above Normal BMI Follow-up L ifestyle education regarding diet * Follow Up: 2 Weeks (Reason: FLU & COVID SHOTS, DISCUSS WT LOSS) * * Sign off status: Completed true * Provider: Garrison Gomez Date: 0 03/31/2024 Generated for Anne Marie parisi/Malcolm/Carlos on: 0 08/31/2024 10:56 PM SALVAGE CLERK History and Physical Notes * HPI (History of Present Illness) Category Sub-Category Detail Notes Category Not es Interim History Was hospitalized No Emergency room visit No Depression Screening PHQ-9 Little inte rest or pleasure in doing things: Several days Feeling down, depressed, or hopeless: No t at all Trouble falling or staying asleep, or sl eeping too much: Not at all Feeling tired or having little energy: S everal days Poor appetite or overeating: Several day s Feeling bad about yourself o r that you are a failure, or have let yourself or your family down: Not at all Trouble concentrating on thi ngs, such as reading the newspaper or watching television: Not at all Moving or speaking so slowly that other people could have noticed; or the opposite, being so fidgety or restless that you have been moving around a lot more than usual: Not at all Thoughts that you would be b ryley off or of hurting yourself in some way: Not at all Total Score: 3 Interpretation: Minimal Depression Screening [place] Suicide Sev erity Rating Scale (LF) Do you want to initiate with: Screener form 1. Wish to be : Have you wished you were or wished you could go to sleep and not wake up?: No 2. Suicidal Thoughts: Have you actually had any thoughts of killing yourself?: No 6. Suicide Behavior Question: Have you ever done anything,started to do anything, or prepared to end your life?: No Interpretation:: Low Risk Do Not Use CSSRS Interpretation and Follow Up Plan CSSRS Interpretation and Follow Up Plan CSSRS Screen documented using SF: Yes Moderate or High risk requir es selection of a follow up plan: CSSRS No/Low: intervention not needed at this time Examination Category Sub-Category Detail Notes Category Not es General Examination GENERAL APPEARANCE: well dev eloped, well nourished, in no acute distress HEAD: normocephalic, atrau matic EYES: PERRLA, sclera and c onjunctiva clear EARS External ears intact NOSE: nares patent, no les ions, septum intact THROAT: no erythema, no exud ate, pharynx normal NECK/THYROID: no JVD, no goiter HEART: regular rate and rhy thm, no murmurs LUNGS: respirations regular and easy, clear to auscultation bilaterally ABDOMEN: bowel sounds present , soft, nontender, nondistended, no masses palpable, no organomegaly NEUROLOGIC: cranial nerves 2-12 grossly intact SKIN: warm and dry, no clayton hes EXTREMITIES: no clubbing, cyanosi s, or edema MUSCULOSKELETAL: no joint deformity, swelling, redness, or warmth , LEROY upper and lower extremities ORAL CAVITY: mucosa moist
--- OUTSIDE RECORDS SUMMARY | 2024-08-31 22:57 | XMS_ITS ---
Author Organization [facility]ly [facility] Address [address] [place] [address] Care Team Providers Care Control Engineer Name Role Phone Buster Gomez Primary Care Provider [phone] Tha Aparicio Unavailable [phone] REASON FOR VISIT PRAPARE Assessment Social History Tobacco Use: Social History Observation Description Date Details (start date - stop date) Never Smoker NA - NA Sex Assigned At : Social History Observation Description Sex Assigned At Female Alcohol Screen (Audit-C) Question Answer Notes Did you have a drink containing alcohol in the p ast year? No Points 0 Interpretation Negative PRAPARE Question Answer Notes Date Completed/Updated: 06/16/2024 What is your current housing situation? I have h ousing Are you worried about losing your housing? No What is the highest level of school that you have finished? 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 Check all that apply I do not have problems meeting my needs Has lack of transportation k ept you from medical appointments, meetings, work or from getting things needed for daily living? No How often do you see or talk to people that you care about and feel close to? (For example: talking to friends on the phone, visiting friends or family, going to zoroastrian or club meetings) More than 5 times a week How stressed are you? Stress is when someone feels tense, nervous, anxious, or can\t sleep at night because their mind is troubled Very much In the past year have you sp ent more than 2 nights in a row in a assisted, fci, intermediate center, or juvenile correctional facility? No Are you a refugee? No What country are you from? [place] Do you feel physically and e motionally safe where you currently live? Yes In the past year, have you b een afraid of your partner or ex-partner? Yes PRAPARE Score: 7 Tobacco Control (Standard) Question Answer Notes Tobacco use: Nonsmoker Encounters Encounter Location Date Provider Diagnosis [address] [place] [address] 06/18/2024 Tha Aparicio Plan Of Treatment No Information Progress Notes * Clifton ALVAREZOB: 5 (28 yo F)Acc No.[id number]:06/18/2024 Patient: Sae CAIN :1995 A ge:28 Y S ex:Female Address:[address] [place] [address], [place], [address] Subjective: * Chief Complaints: * P VILMA Assessment * Medical History: * Surgical History: * Hospitalization/Major Diagno stic Procedure: * Social History: S ocial Determinants: Randal Mcclain ate Completed/Updated: 1 08/17/2023, W hat is your current housing situation? I have housing, A re you worried about losing your housing? N o, W hat is the highest level of school that you have finished? 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 Check all that apply I do not have problems meeting my needs, H as lack of transportation kept you from medical appointments, meetings, work or from getting things needed for daily living? N o,?How often do you see or talk to people that you care about and feel close to? (For example: talking to friends on the phone, visiting friends or family, going to zoroastrian or club meetings) M ore than 5 times a week, H ow stressed are you? Stress is when someone feels tense, nervous, anxious, or can\t sleep at night because their mind is troubled V mook much, I n the past year have you spent more than 2 nights in a row in a assisted, fci, intermediate center, or juvenile correctional facility? N o, A re you a refugee? N o, W hat country are you from[place], D o you feel physically and emotionally safe where you currently live? Y es, I n the past year, have you been afraid of your partner or ex-partner? Y es, P RAPARE Score: 7 . T obacco Use: T obacco Control (Standard) T obacco use: N onsmoker. D rugs/Alcohol: A lcohol Screen (Audit-C) D id you have a drink containing alcohol in the past year? N o, P oints 0 , I nterpretation N egative. * Medications: Objective: * Vitals: * Physical Examination: Assessment: Plan: * Treatment: * Procedure Codes: * true * Date: Generated for Anne Marie parisi/Malcolm/eTransmitting on: 0 08/31/2024 10:57 PM AUTOMOBILE PAINTER
--- OUTSIDE RECORDS SUMMARY | 2024-08-31 22:57 | XMS_ITS ---
Author Organization [facility] Address [address] [place] [address] Care Team Providers Care Carpenter And Joiner Name Role Phone Buster Gomez Primary Care Provider Allergies No Known Allergies REASON FOR VISIT Pt c/o of right knee pain Medications Medication SIG (Take, Route, Frequency, Duration) Notes Start Date End Date Status Vitamin D (Cholecalciferol) 25 MCG (1000 UT) 1 tablet Orally Once a day for 30 days Active hydrOXYzine Pamoate 25 MG 1-2 capsule at night Orally Once a day for 30 days As needed sleep Active Naproxen 500 MG 1 tablet with food or milk as needed Orally every 12 hrs for 30 days As needed BACK AND LEG PAIN 07/14/2024 Active ARIPiprazole 10 MG 1 tablet Orally Once a day for 30 days Active Zoloft 50 MG 1.5 tablet Orally Once a day for 30 days Active Albuterol Sulfate (sensor) 108 (90 Base) MCG/ACT 1-2 puffs as needed Inhalation every 4 hrs for 30 days Active Topiramate has continued to take Not-Taking busPIRone HCl 5 MG Take 1 tablet by mouth twice daily for 30 please have contact office to have appointment scheduled Not-Taking Social History Tobacco Use: Social History Observation [...] (Standard) Question Answer Notes Tobacco use: Nonsmoker Problems Problem Type SNOMED Code ICD Code Onset Dates Problem Status W/U Status Risk Notes Problem Sciatica (74647505) Sciatica associated with disorder of lumbar spine, 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) Active confirmed Vital Signs Weight 206 lbs 07/14/2024 Height 65 in 07/14/2024 BMI 34.28 kg/m2 07/14/2024 Blood pressure systolic 116 mm Hg 07/14/19 25 Blood pressure diastolic 80 mm Hg 025 Heart Rate 73 /min 07/14/2024 Oximetry 97 % 07/14/2024 Respiratory Rate 16 /min 07/14/2024 Encounters Encounter Location Date Provider Diagnosis [address] [address] 07/14/2024 Buster Gomez Sciatica associated with disorder of lumbar spine, right M54.31 ; Cerebral palsy G80.9 and Obesity, unspecified classification, unspecified obesity type, unspecified whether serious comorbidity present E66.9 Assessments Encounter Date Diagnosis (ICD Code) Assessment Notes Treatment Notes Treatment Clinical Notes Section Notes 07/14/2024 Sciatica associated with disorder of lumbar spine, right (ICD-10 - M54.31) DISCUSSED STRETCHES, BODY MECHANICS, CORE EXERCISES, MEDITERRANEAN DIET. FURTHER EVALUATION IF NOT IMPROVED IN 6-8 WEES, 07/14/2024 Cerebral palsy (ICD-10 - G80.9) 07/14/2024 Obesity, unspecified classification, unspecified obesity type, unspecified whether serious comorbidity present (ICD-10 - E66.9) Plan Of Treatment Medication Medication Name Sig Start Date Stop Date Notes Naproxen 500 MG 1 tablet with food o r milk as needed Orally every 12 hrs for 30 days 07/14/2024 Next Appt Details Follow Up: 2 Months, Reason: RIGHT LBP W/ SCIATICA Progress Notes * Clifton ALVAREZOB: 5 (29 yo F)Acc No.[id number]:07/14/2024 Progress Notes Patient: Sae CAIN Provider: Garrison Gomez :1995 A ge:29 Y S ex:Female Date:07/14/2024 Address:[address] [place], [place] [id number] Check In:02:03 PM DESK CLERK Subjective: * Chief Complaints: * P t c/o of right knee pain * HPI: I nterim History: RIGHT LATERAL THIGH PAIN. FROM RIGHT LOW BACK TO BUTTOCK. MILD TO MODERATE. WORSE WITH WALKING, BENDING, OR LYING ON RIGHT SIDE. BETTER WITH REST. ONSET ABOUT 2 MONTHS AGO. FIRST EPISODE 7 YEARS AGO AFTER DELIVERING HER DAUGHTER. NO WEAKNESS. MILD TINGLING RIGHT LATERAL THIGH. NO GI/ CHANGES. MILD TO MODERATE RIGHT LOWER BACK AND BUTTOCK PAIN. Emergency room visit N o. Was hospitalized N o. D epression Screening: PHQ-9 L ittle interest or pleasure in doing things?Several days F eeling down, depressed, or hopeless S everal days T rouble falling or staying asleep, or sleeping too much S everal days F eeling tired or having little energy [...] N ot at all T otal Score 5 I nterpretation M ild Depression S creening: [place] Suicide Severity Rating Scale (LF) D o [...] Up Plan: CSSRS Interpretation and Follow Up Plan C SSRS Screen documented using SF Y es R isk Disposition from SF L ow - No Follow Up Plan Required F ollow Up Plan N o Follow Up Plan required at this time. * ROS: B asic ROS: Admits B ack Problems. * Medical History: * Surgical History: D enies Past Surgical History * Hospitalization/Major Diagno stic Procedure: cornel hild 2017 * Family History: F ather: [...] of learning P referred method of learning: D iscussion * Medications: T akingVitamin D (Cholecalciferol) 25 MCG (1000 UT) Tablet 1 tablet Orally Once a day Albuterol Sulfate (sensor) 108 (90 Base) MCG/ACT Aerosol Powder Breath Activated 1-2 puffs as needed Inhalation every 4 hrs hydrOXYzine Pamoate 25 MG Capsule 1-2 capsule at night Orally Once a day As needed sleepZoloft 50 MG Tablet 1.5 tablet Orally Once a day ARIPiprazole 10 MG Tablet 1 tablet Orally Once a day Taking Vitamin D (Cholecalciferol) 25 MCG (1000 UT) Tablet 1 tablet Orally Once a day Taking Albuterol Sulfate (sensor) 108 (90 Base) MCG/ACT Aerosol Powder Breath Activated 1-2 puffs as needed Inhalation every 4 hrs Taking hydrOXYzine Pamoate 25 MG Capsule 1-2 capsule at night Orally Once a day As needed sleepTaking Zoloft 50 MG Tablet 1.5 tablet Orally Once a day Taking ARIPiprazole 10 MG Tablet 1 tablet Orally Once a day Not-TakingbusPIRone HCl 5 MG Tablet Take 1 tablet [...] Verified] Objective: * Vitals: I nitials: dt, Wt:206, Ht: 65, BMI:34.28, BP:116/80, HR:73, Oxygen sat %:97, RR:16, LMP: IUD, Pain scale:8. * Examination: G eneral Examination: GENERAL APPEARANCE: w ell developed, well nourished, in no acute distress. HEAD: n ormocephalic, atraumatic. EYES: P ERRLA, sclera and conjunctiva clear. EARS External ears intact. NOSE: n sky patent, no lesions, septum intact. ORAL CAVITY: m ucosa moist. THROAT: n o erythema, no exudate, pharynx normal. NECK/THYROID: n o JVD. SKIN: w arm and dry, no rashes. HEART: r egular rate and rhythm, no murmurs. LUNGS: r espirations regular and easy, clear to auscultation bilaterally. ABDOMEN: b owel sounds present, soft, nontender, nondistended, no masses palpable, no organomegaly . MUSCULOSKELETAL: R OM OF LUMBAR SPINE MILDLY LIMITED TO ANTERIOR FLEXION, OTHERWISE INTACT. EXTREMITIES: n o clubbing, cyanosis, or edema. NEUROLOGIC: c ranial nerves 2-12 grossly intact, DTR'S BRISK AT KNEES, 2+ AT ANKLES, TONE AND STRENGTH SYMMETRIC, STATION AND GAIT NL, LS SPINE NONTENDER, SLR NEGATIVE WITH TIGHT HAMSTRINGS. Assessment: * Assessment: 1. S ciatica associated with disorder of lumbar spine, right - M54.31 (Primary) ?2. C erebral palsy - G80.9 3 . O besity, unspecified classification, unspecified obesity type, unspecified whether serious comorbidity present - E66.9 Plan: * Treatment: * Recommended Wellness and Pre vention Guidelines: * S tatus A lert L ast Done N ext Due A ction Taken N ONCOMPLIANT A llergy List Verification - 0 07/14/2024 - N ONCOMPLIANT A sthma symptom assessment - 0 07/14/2024 - N ONCOMPLIANT C ervical cancer screening - 0 07/14/2024 - N ONCOMPLIANT I nfluenza vaccine (high risk) 1 07/15/2022 0 07/14/2024 - * Procedure Codes: G 0467 [facility] VISIT ESTABLISHED PATIENT * Follow Up: 2 Months (Reason: RIGHT LBP W/ SCIATICA) * * CLERK Sign off status: Completed true * Provider: Garrison Gomez Date: 0 07/14/2024 Generated for Anne Marie parisi/Malcolm/Carlos on: 0 08/31/2024 10:56 PM DESK CLERK History and Physical Notes * HPI (History of Present Illness) Category Sub-Category Detail Notes Category Not es Interim History Was hospitalized No Emergency room visit No Depression Screening PHQ-9 Little inte rest or pleasure in doing things: Several days Feeling down, depressed, or hopeless: Se veral days Trouble falling or staying asleep, or sl eeping too much: Several days Feeling tired or having little energy: S [...] some way: Not at all Total Score: 5 Interpretation: Mild Depression Screening [place] Suicide Sev erity Rating Scale (LF) Do [...] end your life?: No Interpretation:: Low Risk CSSRS Interpretation and Follow Up Plan CSSRS Interpretation and Follow Up Plan CSSRS Screen documented using SF: Yes Risk Disposition from SF: Low - No Follo w Up Plan Required Follow Up Plan: No Follow Up Plan requir ed at this time. Examination Category Sub-Category Detail Notes Category Not es General Examination GENERAL APPEARANCE: well dev eloped, well nourished, in no acute distress HEAD: normocephalic, atrau matic EYES: PERRLA, sclera and c onjunctiva clear EARS External ears intact NOSE: nares patent, no les ions, septum intact THROAT: no erythema, no exud ate, pharynx normal NECK/THYROID: no JVD HEART: regular rate and rhy thm, no murmurs LUNGS: respirations regular and easy, clear to auscultation bilaterally ABDOMEN: bowel sounds present , soft, nontender, nondistended, no masses palpable, no organomegaly NEUROLOGIC: cranial nerves 2-12 grossly intact, DTR'S BRISK AT KNEES, 2+ AT ANKLES, TONE AND STRENGTH SYMMETRIC, STATION AND GAIT NL, LS SPINE NONTENDER, SLR NEGATIVE WITH TIGHT HAMSTRINGS SKIN: warm and dry, no clayton hes EXTREMITIES: no clubbing, cyanosi s, or edema MUSCULOSKELETAL: ROM OF LUMBAR SPINE MILDLY LIMITED TO ANTERIOR FLEXION, OTHERWISE INTACT ORAL CAVITY: mucosa moist
--- OUTSIDE RECORDS SUMMARY | 2024-08-31 22:57 | XMS_ITS | Referral Summary ---
Author Organization [facility] [employer] Address [address] [place] [address] Care Team Providers Care Wheel Filler Name Role Phone Joanne Wharton MD Primary Care Provider Source Comments [facility] [employer],non-owned Affiliates and Associated Physician Practices is amultiple site organization consisting of ambulatory clinics and hospital sitesin [place], [place], [place] and [place]. This disclosure is being madepursuant to the Care Everywhere program and may not contain all information available regarding this patient. Last updated 18.[facility] [employer] Allergies No known active allergies Medications * [...] 12/11/2012 10:36 AM CDT Plan of Treatment Not on file Care Teams Wheel Filler Relationship Specialty Start Date End Date Joanne Wharton MD [address] [place] [address] [address] [place] [address] PCP - General Pediatrics 12/10/12
--- NOTE | 2024-08-31 23:00 | ED_ITS ---
HPI - Seizure General Chief Complaint: Seizure Stated Complaint: possible seizure Time Seen by Provider: 08/31/24 22:28 History of Present Illness HPI Narrative: 29-year-old female with a past medical history including cerebral palsy, history of absent seizures in childhood, anger and behavioral issues on multiple medications including antidepressants and mood stabilizer and seizure medication topiramate. Patient has otherwise been in her normal state of health and then today she had an episode of potential absent seizure where she was staring off the space. No seizure activity shows tonic or clonic movement or jerking but patient was not responding verbal stimuli although she experienced odd behaviors and was able to follow commands and a sister self into and out of the stretcher, walk from the ambulance stretcher to the bed and assist with taking off her bra but also did not want a verbalized cap staring off head. EMS noted that she was able to interact during the transfer briefly and then came back to looking straight ahead seemingly in a volitional matter. Patient herself is not able to provide me any history details, mom is present at bedside and provides the majority of the collateral formation. Patient has had similar episodes in the past and has had previous MRI and EEG images that did not show any epilepsy ever since childhood. No falls or injuries. Patient was otherwise in her normal state of health. No recent changes to medications, no new social or physical stresses in her life. Patient is resting comfortably in her stretcher with normal vitals at this time. Related Data Allergies Allergy/AdvReac Type Severity Reaction Status Date / Time No Known Allergies Allergy Verified 08/31/24 23:14 Review of Systems 2 Review of Systems: As reviewed above in HPI Exam 2 Narrative: GENERAL: Overall well-appearing, obese. Not in any acute distress. HEAD: [Normocephalic, atraumatic.] EYES: Pupils are 3 mm and reactive, extraocular movements are full, patient is looking around the room spontaneously. ENT: Nares clear, no rhinorrhea or epistaxis. Mucous membranes moist. NECK: Supple. CHEST: [Clear to auscultation. No respiratory distress.] HEART: [Regular rate and rhythm]. No murmur heard. [Normal peripheral pulses.] ABDOMEN: [Soft, nondistended], [nontender], [No rigidity or guarding] EXTREMITIES: Normal range of motion. [No edema.] SKIN: Warm, dry, no rash. NEURO: No obvious focal deficits, patient is able to move both arms and legs and even did ambulate here in the emergency department. She volitionally hold her arms and legs still and stiff and resists movement but then when pain is applied she withdrawals her extremity without difficulty or spasticity, rigidity. She also seems to volitionally hold her hand and arm and avoids dropping it on her head when lifted overhead and released to gravity. Seems to anticipate painful stimuli and withdrawals when blunt gauge needles are held in proximity to her toes and fingers in attempts to assess pain stimuli and sensation. Overall benign appearing neurological assessment. Course Vital Signs Vital signs: Vital Signs Temperature 37.4 C 08/31/24 22:05 Pulse Rate 86 08/31/24 22:05 Respiratory Rate 15 08/31/24 22:05 Blood Pressure 136/84 08/31/24 22:05 Pulse Oximetry 100 08/31/24 22:05 Oxygen Delivery Room Air 08/31/24 22:05 Temperature 37.4 C 08/31/24 22:05 Pulse Rate 82 09/01/24 00:12 Respiratory Rate 15 09/01/24 00:12 Blood Pressure 122/86 09/01/24 00:12 Pulse Oximetry 97 09/01/24 00:12 Oxygen Delivery Room Air 09/01/24 00:13 MDM - Seizure MDM Narrative Medical decision making narrative: 29-year-old female with a past medical history including cerebral palsy and remote history of ups on seizures despite negative MRI and EEG imaging. Patient has behavioral and mental health issues that she takes multiple medications including antidepressants and topiramate 4. Mom denies any substance use or alcohol use. Denies any intentional drug use or self-harm. Patient was brought by EMS for concerns of potential seizure activity where she was having staring off the space episodes and seemingly unresponsive to verbal stimuli but is able to withdrawal and interact and even ambulate, transition herself in the stretcher to the bed. Patient is cysts nursing staff with taking off her clothes for EKG and lab testing and then seemingly volitionally goes back to staring off the space and not participating. Her neurological assessment is overall benign appearing and she has no focal deficits and her movements seem to be volitional. She has normal vital signs and not any acute distress. This is not the 1st time this has happened per mom. Laboratory studies, toxicological screenings, urine drug screen, CT of the head, EKG and chest x-ray obtained. She is given a L of normal saline and observed here in the emergency department. Suspicion presently is for behavioral issues versus conversion disorder, non epileptic seizure activity, absence seizure activity, malingering. This is less likely related to organic pathology, intracranial pathology, or true epilepsy. I was informed by nursing staff that momentarily after had left the examination room patient was verbalizing and talking to the family and the nursing staff. apparent complete symptomatic resolution. Patient was re-evaluated, answering all my questions, did not seem postictal or confused. Vital signs were reassured, normal workup, no leukocytosis or anemia. Normal platelet count. Normal electrolytes, normal glucose, normal liver and function of the kidneys. Normal electrolytes. Normal TSH. Urinalysis shows no , some white blood cells but no signs of bacteria. Toxic panel is negative, negative salicylates, Tylenol and alcohol level. Head CT shows no acute intracranial process but there is CT evidence of acute by serial maxillary sinusitis. Chest x-ray unremarkable. EKG without any acute ischemic evidence or arrhythmia. Patient was re-evaluated, stable here in the ED without any symptom recurrence, was given a dose of Augmentin for her bacterial sinusitis and was sent home with prescription for 7 days worth of Augmentin. Family members felt comfortable with discharge home at this time given her unremarkable workup and return to normal mentation. Patient will be referred to our local Neurology physician although mom would like to go back to her primary doctor for referral. No present indications for admission. Patient and family felt safe with discharge. There were given strict return precautions. Medical Records Attestation: I reviewed the patient's medical records. Lab Data Attestation: I reviewed the patient's lab results. 08/31/24 22:39 08/31/24 22:39 Labs: Lab Results 08/31/24 08/31/24 08/31/24 Range/Units 22:39 23:13 23:16 WBC 9.9 (4.5-10.0) K/mm3 RBC 4.85 (4.2-5.4) M/mm3 Hgb 14.2 (12.0-15.0) g/dL Hct 42.4 (37.0-47.0) % MCV 87.4 (80-100) fl MCH 29.3 (26-34) pg MCHC 33.5 (32-36) g/dl RDW 13.2 (11.5-14.5) % Plt Count 236 (150-375) k/mm3 MPV 9.3 (7.4-10.4) fl Immature Gran % (Auto) 0.4 (0-0.5) % Neut % (Auto) 69.6 (45.5-73.1) % Lymph % (Auto) 22.0 (18.3-44.2) % [place] % (Auto) 5.4 (2.6-8.5) % Eos % (Auto) 2.1 (0-4.4) % Baso % (Auto) 0.5 (0.2-1.2) % Lymph # (Auto) 2.18 (0.9-3.2) K/mm3 [place] # (Auto) 0.5 (0.1-0.6) K/mm3 Eos # (Auto) 0.2 (0-0.3) K/mm3 Baso # (Auto) 0.1 (0.0-0.1) K/mm3 Abs Immat Gran (auto) 0.04 H (0.00-0.031) K/mm3 Absolute Neuts (auto) 6.9 H (1.3-6.7) K/mm3 Absolute Nucleated RBC 0.000 (0.0-0.012) K/mm3 Nucleated RBC % 0.0 (0.0-0.2) % PT 13.2 (11.1-14.7) Seconds INR 1.0 APTT 27.8 (22.3-36.8) Seconds Sodium 136 L (137-145) mmol/L Potassium 4.1 (3.4-5.0) mmol/L Chloride 101 (98-107) mmol/L Carbon Dioxide 21 L (22-30) mmol/L Anion Gap 14 H (4-12) mmol/L BUN 13 (7-17) mg/dL Creatinine 0.66 L (0.7-1.0) mg/dL Estim Creat Clear Calc 123 ml/min Estimated GFR > 60 (59 - ) Glucose 113 H (65-110) mg/dL Lactic Acid 1.6 (0.7-2.0) mmol/L Calcium 9.5 (8.4-10.2) mg/dL Total Bilirubin 0.4 (0.2-1.3) mg/dL AST 21 (14-36) U/L ALT 25 (6-35) U/L Alkaline Phosphatase 82 (38-126) U/L Total Protein 8.0 (6.3-8.2) g/dL Albumin 4.2 (3.5-5.1) g/dL TSH 3.510 (0.465-4.680) uIU/mL Urine Color Yellow (Yellow) Urine Appearance Clear (Clear) Urine pH 6.0 (5.0-9.0) Ur Specific [place] 1.011 (1.001-1.035) Urine Protein Negative (Negative) mg/dL Urine Glucose (UA) Negative (Negative) mg/dL Urine Ketones Negative (Negative) mg/dL Ur Blood (Man) Negative (Negative) Urine Nitrate Negative (Negative) Urine Bilirubin Negative (Negative) Urine Urobilinogen 0.2 (<2.0) mg/dL Leukocyte Esterase Rfl 1+ H (Negative) DARRYL/UL Urine RBC 0-2 (0-2) /hpf Urine WBC 11-20 H (0-3) /hpf Ur Squamous Epith Cells None seen (Few) /hpf Urine Bacteria None seen /hpf Urine Casts 0-2 POC Urine HCG, Qual Negative (Negative) Salicylates < 1.0 L (2-20) mg/dL Acetaminophen < 10 L (10-30) ug/mL Ethyl Alcohol < 10 (<10) mg/dL Imaging Data Attestation: I personally reviewed and interpreted this imaging study as follows: My impression: Impressions Chest X-Ray 08/31/24 23:07 IMPRESSION: No acute cardiopulmonary process. Head CT 08/31/24 23:50 IMPRESSION: No acute intracranial process. CT findings suggestive of acute bilateral maxillary sinusitis. Discharge Plan Discharge Clinical Impression: Observed seizure-like activity, History of cerebral palsy, History of absence seizures, Acute bacterial sinusitis Patient Disposition: Home, Self-Care Condition: Stable Instructions: Antibiotic Form, Sinusitis (ED), Cerebral Palsy (DC), Nonepileptic Seizures (ED) Additional Instructions: Your workup today was very reassuring, your CT scan is negative, your laboratory studies are all within normal range. He do have evidence of acute maxillary bacterial sinusitis that needs antibiotics to treat so it does not spread and get worse. Otherwise no acute concerns today. Follow-up with your regular doctor and received neurology follow-up. We have given you additional neurology follow-up for local team in the can contact them to set up an appointment. If you have any recurrence, new concerns or any other symptoms that are worrisome please return to the ER at that time. Patient Language: [place] Prescriptions: New amoxicillin-pot clavulanate 875-125 mg tablet 1 tablet PO Q12H 7 Days Qty: 14 0RF fluticasone propionate [Flonase Allergy Relief] 50 mcg/actuation spray,suspension 1 spray intranasal BID Qty: 16 0RF Rx Instructions: administer into each nostril Follow-up/Referrals: Buster Gomez MD [Primary Care Provider] - Time of Disposition: 01:42
[2024-08-31 23:04] LABS: Alanine Aminotransferase 25 U/L (6-35); Albumin Level 4.2 g/dL (3.5-5.1); Alkaline Phosphatase 82 U/L (38-126); Anion Gap 14 mmol/L (4-12); Aspartate Amino Transferase 21 U/L (14-36); Bilirubin,Total 0.4 mg/dL (0.2-1.3); Blood Urea Nitrogen 13 mg/dL (7-17); Calcium 9.5 mg/dL (8.4-10.2); Carbon Dioxide 21 mmol/L (22-30); Chloride 101 mmol/L (98-107); Estimated CRCL calculation 123 ml/min; Estimated Glomerular Filt Rate > 60; Glucose 113 mg/dL (65-110); Potassium 4.1 mmol/L (3.4-5.0); Sodium 136 mmol/L (137-145)
[2024-08-31 23:05] LABS: Acetaminophen < 10 ug/mL (10-30); Ethanol < 10 mg/dL (<10); Lactic Acid Reflex 1.6 mmol/L (0.7-2.0); Salicylate < 1.0 mg/dL (2-20)
[2024-08-31 23:12] LABS: Prothrombin Time 13.2 Seconds (11.1-14.7)
[2024-08-31 23:13] LABS: Partial Thromboplastin Time 27.8 Seconds (22.3-36.8)
[2024-08-31 23:17] LABS: BEDSIDEPREGUCG Negative (Negative)
[2024-08-31 23:24] LABS: Add Urine Microscopic? YES; Appearance Urine Clear (Clear); Bacteria Urine None Seen /hpf; Bilirubin Urine Negative (Negative); Blood Urine Negative (Negative); Color Urine Yellow (Yellow); Glucose Urine UA Negative (Negative); Ketones Urine Negative (Negative); Leukocyte Esterase Ur 1+ LEU/UL (Negative); Nitrate Urine Negative (Negative); Non Pathogenic Casts 0-2; Protein Urine Negative (Negative); RBC Urine 0-2 /hpf (0-2); Specific Grav Ur 1.011 (1.001-1.035); Squamous Epithelial Cell Urine None Seen /hpf (Few); Urobilinogen Urine 0.2 mg/dL (<2.0)
[2024-09-01 00:12] VITALS: BP 122/86; PULSE 82; PULSE 86; RESP 15; O2SAT 97
[2024-09-01] MEDS: AMOXICILLIN/CLAVULANATE K 875-125 MG TAB 1 TABLET PO (01:45)
[2024-09-01 01:55] VITALS: BP 126/84; PULSE 82; RESP 16; O2SAT 99
[2024-09-01 01:57] VITALS: BP 126/84; PULSE 82; RESP 16; O2SAT 99
== END 2024-09-01 01:59 | disposition home or self-care (01) ==
PROVIDERS: Emergency Provider Student in an Organized Health Care Education/Training Program; PCP Internal Medicine
DX: R56.9 Unspecified convulsions (principal); J01.80 Other acute sinusitis; B96.89 Other specified bacterial agents as the cause of diseases classified elsewhere; G80.9 Cerebral palsy, unspecified
CPT/HCPCS: 36415; 70450; 71045; 80053; 80143; 80179; 81001; 81025; 82077; 83605; 84443; 85025; 85610; 85730; 87086; 93005; 96360; 99284; A9270; J7030

== ENCOUNTER 2024-12-04 08:31 | Outpatient (CLI) | payer MEDICARE, MEDICAID, SELFPAY ==
--- NOTE | ~2024-12-04 | US_ITS ---
US breast RT limited 12/04/2024 08:58 Indication: Palpable right breast abnormality Procedure: High-resolution Limited ultrasound of the right breast Comparison: No prior studies for comparison. Findings: At 11:00, 12 cm from the nipple there is an oval circumscribed parallel oriented subcutaneo us 3 mm mass. No sinus tract identified. No other mass identified. No internal vascularity or posteri or features. Impression: 1: Probable benign subcutaneous right breast mass at 11:00, 12 cm from the nipple. BI-RADS CATEGORY 3-PROBABLY BENIGN FINDING RECOMMENDATION: 6 month follow up recommended. Reviewed, dictated and finalized at location A. Impression: 1: Probable benign subcutaneous right breast mass at 11:00, 12 cm from the nipp le. BI-RADS CATEGORY 3-PROBABLY BENIGN FINDING RECOMMENDATION: 6 month follow up recommended.
--- OUTSIDE RECORDS SUMMARY | 2024-12-04 08:35 | XMS_ITS | Data Portability ---
Author Organization [facility] [place] Address [address] [place] [address] Assessment Encounter Date Assessment Date Assessment LastModified by Organization Details LastModified Time 04/25/2022 04/25/2022 Annual gynecological exam performed. Patient will come back in a year unless there are new symptoms. Not available 04/25/2022 11:57:56 11/10/2024 11/10/2024 Annual gynecological exam performed. Patient will come back in a year unless there are new symptoms. [email or web address] Not available 11/10/2024 11:16:11 Plan of Treatment Reminders Order Date Submit Date Provider Last Modified By Organization Details Last Modified Time Details Appointments IUD REMOVAL 2024 09:30A MARTINE Torres Not available Not available Not available Lab hbcab (hepatiti s B core Ab) igm, serum 2024 025 [facility] (Lab), [address], [place], [address], 11/11/2024 14:59:38 HBsAg (hepatiti s B surface Ag), serum 2024 025 [facility] (Lab), [address], [place], [address], 11/17/2024 04:13:48 hepatitis C virus Ab, serum 2024 025 [facility] (Lab), [address], [place], [address], 11/11/2024 14:59:38 HIV 1+2 AB + HIV 1 p24 Ag, qualitati ve immunoass ay, serum 2024 025 [facility] (Lab), [address] [facility], [place], [address], 11/11/2024 14:59:38 RPR (rapid plasma reagin), serum 2024 025 [facility] (Lab), [address], [place], [address], 11/11/2024 14:59:39 pap, IG + reflex HPV if ASC-U - if positive HPV run subtyping 16,18/45 2024 025 [facility] (Lab), [address], [place], [address], 11/14/2024 07:44:58 unlisted lab - women's health swab plus, XIMENA 2024 025 [facility] (Lab), [address] [place], [address], 11/14/2024 07:44:58 Referral None recorded. Procedures None recorded. Surgeries None recorded. Imaging US, breast, unilatera l 2024 025 [facility], [address], [place] [address], [place], [address], 11/17/2024 04:13:47 Medication Orders metronida zole 500 mg tablet 2024 025 [facility], [address] [place], [address], 11/10/2024 11:48:20 fluconazo le 150 mg tablet 2024 025 [facility], [address] [place], [address], 11/10/2024 11:48:17 Patient TargetsNo targets recorded. Patient InstructionsNo instructions recorded. Reason for Referral None Reported. 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 FINAL DIAGN OSIS: Negat miki for Intra epith elial Lesio n or Anil reid (NIL) . Kevin queen angel d by Heidi Mariscal, CT [...] is recom mikel d, as clini radha warra nted. Not Available [facility] [address] [place], [address], 05/01/2022 08:00:20 04/25/20 22 04/25/2022 CT/GC (PATRICK) , THINP REP VIAL chlamydia trachomatis, PCR Negati ve negati ve Not Available [facility] [address] [place] [address], [address], 05/01/2022 08:00:21 04/25/20 22 04/25/2022 CT/GC (PATRICK) , THINP REP VIAL neisseria gonorrhoeae, PCR Negati ve negati ve Not Available [facility] [address] [place], [address], 05/01/2022 08:00:21 04/25/20 22 04/25/2022 TRICH OMONA S VAGIN REENA (RRNA ) trichomonas vaginalis ribosomal RNA (rrna) Negati ve negati ve Not Available [facility] [address] [place], [address], 05/01/2022 08:00:22 11/11/1911/10/2024 [facility], XIMENA bacterial vaginosis (bv), tma Negati ve negati ve Not Available [facility] (Lab) [address] [place], [address], 11/14/2024 07:44:58 11/11/19 25 11/10/2024 [facility] X[facility] lisa species, tma Positi ve negati ve abnormal Not Available [facility] (Lab) [address] [place], [address], 11/14/2024 07:44:58 11/11/19 25 11/10/2024 [facility] XIMENA lisa glabrata, tma Positi ve negati ve abnormal Not Available [facility] (Lab) [address] [place], [address], 11/14/2024 07:44:58 11/11/19 25 11/10/2024 [facility], XIMENA trichomonas vaginalis, tma Negati ve negati ve Not Available [facility] (Lab) [address] [place], [address], 11/14/2024 07:44:58 11/11/19 25 11/10/2024 [facility], XIMENA chlamydia trachomatis, PCR Negati ve negati ve Not Available [facility] (Lab) [address] [place], [address], 11/14/2024 07:44:58 11/11/19 25 11/10/2024 [facility] SW[facility], XIMENA neisseria gonorrhoeae, PCR Negati ve negati ve Bacte rial vagin osis detec ts the follo wing bacte anabel assoc iated with bacte rial vagin osis (BV): Lacto bacil delfin (L. gasse ri, LDarcy hannon atus and Martha batres rafiq), Gardn erell a vagin reena, and Atopo bium vagin ae. A singl e quali tativ e resul t is repor salina base on instr ument softw are to deter mine BV posit miki or negat miki statu s. The [facility] speci es group tests for C. albic ans, C. tropi calis , C. parap terence is, C. dubli niens is. Testi ng is perfo rmed using the Trans cript ion Media salina Ampli ficat ion metho d. Tests for Velvet da glabr ramirez, Trich omona s vagin reena, Chlam ydia trach omati s, and Neiss eria gonor rhoea e are also inclu ded in this panel . Not Available [facility] (Lab) [address] [facility], [place], [address], 11/14/2024 07:44:58 Result Notes None recorded. Procedures Surgical History Date Name Laterality Status Provider Name and Address Organization Details Recorded Time 2 Date of Last Pap Smear completed Tracy Mik [facility] 11/10/2024 11:28:52 5 Dilation and Curettage completed [facility] 04/25/2022 12:14:11 Imaging Results None recorded. Procedure Notes None recorded. Medical Equipment None Reported. Allergies No known drug allergies Medications Name Sig Start Date Stop Date Status Note LastModified by Organization Details LastModified Time buspirone 5 mg tablet TAKE 1 TABLET BY MOUTH TWICE DAILY active Not Available Not Available No t Available fluconazole 150 mg tablet TAKE 1 TABLET BY MOUTH NOW AND REPEAT IN 7 DAYS IF NEEDED active Not Available Not Available No t Available ondansetron HCl 4 mg tablet TAKE 1 TABLET BY MOUTH EVERY 8 HOURS 11/10 completed Not Available Not Available Not Available sertraline 100 mg tablet TAKE 2 TABLETS BY MOUTH ONCE DAILY 04/25 completed Not Available Not Available Not Available metronidazo le 500 mg tablet TAKE 1 TABLET BY MOUTH EVERY 12 HOURS FOR 7 DAYS active Not Available Not Available No t Available famotidine 20 mg tablet TAKE 1 TABLET BY MOUTH EVERY 12 HOURS FOR 10 DAYS 11/10 completed Not Available Not Available Not Available ergocalcife rol (vitamin D2) 1,250 mcg (50,000 unit) capsule TAKE 1 CAPSULE BY MOUTH ONCE A WEEK active Not Available Not Available No t Available fluticasone propionate 50 mcg/actuati on nasal spray,suspe nsion USE 1 SPRAY(S) IN EACH NOSTRIL TWICE DAILY 11/10 completed Not Available Not Available Not Available sertraline 50 mg tablet TAKE 1 & 1/2 (ONE & ONE-HALF) TABLETS BY MOUTH ONCE DAILY FOR 30 DAYS active Not Available Not Available No t Available naproxen 500 mg tablet TAKE 1 TABLET BY MOUTH EVERY 12 HOURS WITH FOOD NEEDED FOR BACK AND LEG PAIN 11/10 completed Not Available Not Available Not Available amoxicillin 875 mg-potassiu m clavulanate 125 mg tablet TAKE 1 TABLET BY MOUTH EVERY 12 HOURS 11/10 completed Not Available Not Available Not Available hydroxyzine pamoate 25 mg capsule TAKE 1 TO 2 CAPSULES BY MOUTH ONCE DAILY IF NEEDED FOR ANXIETY AND FOR SLEEP ONCE DAILY active Not Available Not Available No t Available aripiprazol e 10 mg tablet TAKE 1 TABLET BY MOUTH ONCE DAILY active Not Available Not Available No t Available bupropion HCl XL 300 mg 24 hr tablet, extended release TAKE 1 TABLET BY MOUTH ONCE DAILY IN THE MORNING 11/10 completed Not Available Not Available Not Available bupropion HCl XL 150 mg 24 [...] Available Vitals Date Recorded Body height Body mass index (BMI) Body weight Systolic blood pressure Diastolic blood pressure Provider Name and Address Organization Details Last Updated DateTime 11/10/2024 162.56 cm 34.8 kg/m2 70020.53 g 104 mm[Hg] 72 mm[Hg] Tracy Houser [facility] 11:26:15 Date Recorded Body height Body weight Systolic blood pressure Diastolic blood pressure Provider Name and Address Organization Details Last Updated DateTime 04/25/2022 161.29 cm 94127.1 g 130 mm[Hg] 80 mm[Hg] Estella Zhang I [facility] 04/25/2022 12:10:15 Social History Question Answer Notes LastModified by Organizat ion Details LastModified Time Tobacco Smoking Status Never Smoker Estella Zhang [facility] 04/25/2022 12:13:50 Do You Have An Advance Directive? Yes Information n ot available 04/25/2022 Are You Blind Or Do You Have Difficulty Seeing? No Information n ot available 04/25/2022 What Is Your Level Of Caffeine Consumption? None Information not available 04/25/2022 In The 14 Days Before Symptom Onset, Have You Had Close Contact With A Laboratory-confirm ed COVID-19 While That Case Was Ill? No [email or web address] Information n ot available 11/10/2024 In The 14 Days Before Symptom Onset, Have You Had Close Contact With A Person Who Is Under Investigation For COVID-19 While That Person Was Ill? No [email or web address] Information not available 11/10/2024 Have You Been To An Area Known To Be High Risk For COVID-19? No [email or web address] Information not available 11/10/2024 Are You Deaf Or Do You Have Serious Difficulty Hearing? No Information not available 04/25/2022 What Type Of Diet Are You Following? REGULAR Information n ot available 04/25/2022 Do You Use Your Seat Belt Or Car Seat Routinely? Yes Information not available 04/25/2022 Do You Have Smoke And Carbon Monoxide Detectors In Your Home? Yes Information not available 04/25/2022 Do You Have Difficulty Walking Or Climbing Stairs? No Information not available 04/25/2022 Sex: Unknown Functional Status Question Answer Note LastModified by Organizat ion Details LastModified Time Do you use any illicit or recreational drugs? No Information not available 04/25/2022 What is your level of alcohol consumption? None Information not available 04/25/2022 Are you able to walk? YESWOREST Information not available 04/25/2022 Are you able to care for yourself? Yes Information n ot available 04/25/2022 Do you have difficulty dressing or bathing? No Information not available 04/25/2022 What is your exercise level? Moderate Information not available 04/25/2022 Mental Status Question Answer Note LastModified by Organization D etails LastModified Time Do you feel stressed (tense, restless, nervous, or anxious, or unable to sleep at night)? [id number] Information not available 04/25/2022 Family History Relationship Description Onset Age of this Age Resolved Age Notes LastModified by Organization Details LastModified Time Mother Asthma Not available 12:12:39 Mother Hypertensive disorder Not available 2021 12:12:45 Maternal Grandmother Heart disease Not available 2021 12:12:52 Paternal Grandmother Malignant neoplasm of lung Not available 2021 12:13:00 Maternal Aunt Malignant tumor of cervix Not available 2021 12:13:09 Maternal Aunt Malignant neoplasm of uterus Not available 2021 12:13:18 Paternal Uncle Malignant neoplasm of lung Not available 2021 12:13:28 Medical History Condition Response Anxiety Disorder Y Depression/ depression Y Gynecological History Statement/Question Response Abnormal Pap N Date of LMP STIs/STDs Yes HPV Vaccine N Current Control Method IUD Date of Last Colonoscopy Sexually Active? Y Menses Monthly N Date of DEXA bone scan Age of first menstrual cycle 10 Date of Last Pap Smear 04/25/2022 Sexual Problems? N LMP Unknown Obstetrics History GPAL:G 2 P 1 0 1 1 Type Value Full Term 1 Spontaneous 1 Living 1 Total 2 Past Encounters Encounter ID Performer Location Encounter Start Date Encounter Closed Date Diagnosis/Indication Diagnosis SNOMED-CT Code Diagnosis ICD10 Code Diagnosis Note [id number] [facility] [address] [address] 04/25/2022 11:26:13 04/25/2022 12:17:26 Gynecologic examination 34466824 Z01.419 Take Calcium with Vitamin D 1200mg [...] na Dexa Screen na Routine Labs PCPMammo Ximena Mirena IUD prevents for up to 8 years, and also helps with heavy periods for up to 5 years in women who choose an IUD for control. [id number] MARTINE Darby [place] [address] [address] 11/10/2024 10:40:51 11/11/2024 10:41:26 Gynecologic examination 48239081 Z01.419 WWEBC - Mirena IUD (will 02/2025)BC options discussed, opts to continue mirena, RTC for removal/re placement prior to expiration Pap - done todaySTI screen - orderedRou romario labs - PCPRTC in 1 yr or sooner if needed It is strongly advised to have an annual flu shot and up can obtain at most pharmacies . If you have not had a TDap shot in the last 10 years you should obtain one as well. Discussed with patient & provided with informatio n regarding the HPV vaccine if applicable . Encourage safe sexual practices, to use condoms and limit partners if not already in a monogamous relationsh ip. Do monthly self breast exams. BRCA testing is now available for patients with strong genetic history of female cancer. If interested contact the office. Engage in regular exercise. Avoid tobacco and illicit drugs. This lifestyle behavior pattern will lead to less health conditions and longer life span. If BMI greater than 25 dietary consult advised. Questions answered. Lesion of breast 2955242 04 N64.9 order given for right breast u/sprecaut ions discussed Venereal d isease screening 660680773 Z11.3 Sexually t ransmitted infectious disease 3871780 A64 Acute vaginitis 77915496 N76.0 vaginitis/ STI panel sentrx sent for BV/yeastvu lvar care guidelines discussedD iscussed the various types of STIs, related symptoms and the potential consequenc es (including effects on fertility) of STI infections . Reviewed ways to limit exposure and prevention techniques . Time spent in visit is a total of 35 mins with at least 50% of visit consisting of counseling and review of plan of care. Health Concerns Section Related Observation LastModified by Organization Detai ls LastModified Time None Recorded Concern Status LastModified by Organization Details LastModified Time None Recorded Advance Directives Directive Y: Payers Encounter Date Sequence Insurance Name Policy Number Policy Biggs Covered Member ID Biggs Member ID Guarantor Name 04/25/2022 2 [place] [facility] [id number] [facility] 04/25/2022 1 [place] Sae Jurado [facility] [id number] [facility] 11/10/2024 2 [facility] [id number] [facility] 11/10/2024 1 [place] Sae Jurado [facility] [id number] [facility] Notes Date Note Type Note Provider Name [...] age 40; Followed with yearly pap smears MARTINE Rodgers- [address], [place], [address], [facility] 04/25/2022 17:22:16 11/10/2024 text/html Annual GYNReport ed bypatient.Menstrua l cycle:Normal menses Urinary symptoms:No hematuria; No incontinence Vulva:No genital lesion Vagina:Foul-smelli ng;White;Vaginal itching Breast:No breast pain; No breast lump; No nipple discharge Current Contraception:Sati sfied with current contraception; Intrauterine device (iud) Sexual complaints:No sexual complaints; No pain during intercourse; Normal libido Menopausal Symptoms:No menopausal symptoms; Normal vaginal lubrication Psychological symptoms:No depression; No anxiety; No PMDD Preventive measures:Encourage self breast examination; Encourage regular exercise; Encourage no tobacco use; Encourage regular mammograms starting age 40Notes:29yo wwe [id number] - Mirena IUD, inserted 02/2017 and will 02/2025last pap 2021 wnl per pt vaginal d/c, odors, itching x 2 weeksnew partner recently and would like STI testing right breast bump, noticed a few weeks agoneg pain/discharge/itc MARTINE Islas [address], [place], [address], [facility] 11/10/2024 13:53:09 OBGyn Episode Ob Episode Information Episode Created Date Number of Fetuses Patient Bloodtype Patient rh Status Prepregnancy Weight lbs Domestic Partner Domestic Partner Phone Father Name Asp Developer Status 04/25/20 22 1 CLOSED Fetus Data First Name Last Name Admitted to NICU Weight (g) Sex Living Outcome Pediatric Complications Fetus ID Race Codes Race Delivery Type F [id number] Vaginal Delivery Charlie Calculation Initial Charlie Date [...] Domestic Partner Domestic Partner Phone Father Name Asp Developer Status 04/25/20 22 1 CLOSED Fetus Data First Name Last Name Admitted to NICU Weight (g) Sex Living Outcome Pediatric Complications Fetus ID Race Codes Race Delivery Type , Spontane ous [id number] Charlie Calculation Initial Charlie Date Initial Exam [...]
--- OUTSIDE RECORDS SUMMARY | 2024-12-04 08:36 | XMS_ITS ---
Author Organization [facility] Address [address] [place] [address] Care Team Providers Care Pin Chaser Name Role Phone Buster Gomze Primary Care Provider [phone] Thuan Knapp [phone] REASON FOR VISIT 1 month psych follow up/med refill Social History Sex Assigned At : Social History Observation Description Sex Assigned At Female Encounters Encounter Location Date Provider Diagnosis [address] [address] 11/20/2024 Thuan Knapp Plan Of Treatment No Information Progress Notes * NAOMIHarmanNeilOB: 5 (29 yo F)Acc No.[id number]:11/20/2024 UNLOCKED PROGRESS NOTE Patient: Sae CAIN Provider: Colby Knapp APN :[id number] A ge:29 Y S ex:Female Date:11/20/2024 Address:[address] [place] [id number] Pcp:Buster Gomez Subjective: * Chief Complaints: * 1 . 1 month psych follow up/med refill. * Medical History: Objective: * Vitals: Assessment: Plan: * Treatment: * * Electronic signature of Thuan Knapp on 12/04/2024 at 08:35 AM CDT Sign off status: Pending * Provider: Colby Knapp APN Date: 0 11/20/2024 Generated for Anne Marie parisi/Malcolm/Carlos on: 0 12/04/2024 08:35 AM CDT
--- OUTSIDE RECORDS SUMMARY | 2024-12-04 08:36 | XMS_ITS | Clinical Summary ---
Author Organization [facility] Address [address] [place] [address] Care Team Providers Care Bottle Gauger Name Role Phone Joanne Wharton MD Primary Care Provider Source Comments [facility],non-owned Affiliates and Associated Physician Practices is amultiple site organization consisting of ambulatory clinics and hospital sitesin [place], [place], [place] and [place]. This disclosure is being madepursuant to the Care Everywhere program and may not contain all information available regarding this patient. Last updated [address] [facility] Allergies No known active allergies Medications * Be aware that medications may not be up to date on this document. Alwaysverify current medications with the patient. sertraline (ZOLOFT) 100 MG tablet Take 150 mg by mouth once daily. 1 1/2 tabs Active drospirenone-eth inyl estradiol (KIMBER) 3-0.02 MG tablet Take 1 Tab by mouth once daily. Active ALBUTEROL IN Inhale 3 Puffs by mouth as needed. 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 Social History Tobacco Use Types Packs/Day Years Used Date Smoking Tobacco: Never Assessed Comments No Sex and Gender Information Value Date Recorded Sex Assigned at Not on file Legal Sex Female 5:36 AM DIRECTOR PLANS Gender Identity Not on file Sexual Orientation Not on file Last Filed Vital Signs Vital Sign Reading Time Taken Comments Blood Pressure 102/80 12/11/2012 10:36 AM CDT Pulse - - Temperature - - Respiratory Rate - - Oxygen Saturation - - Inhaled Oxygen Concentration - - Weight 69.3 kg (152 lb 12.8 oz) 013 10:36 AM CDT Height 160.5 cm (5' 3.19) 12/11/2012 1 0:36 AM CDT Body Mass Index 26.91 12/11/2012 10:36 AM CDT Plan of Treatment Health Maintenance Due Date Last Done Comments HIV SCREENING 2010 HEPATITIS C SCREENING 06/25/2013 DTAP/TDAP/TD VACCINES (1 - Tdap) 2014 HEPATITIS B VACCINE (1 of 3 - 19+ 3-dose series) 2014 COVID-19 VACCINE (1 - 2023-2 5 season) 2024 DEPRESSION SCREENING 07/08/2024 INFLUENZA VACCINE (Season Ended) 2025 ZOSTER VACCINE (1 of 2) 2045 HIB VACCINE Aged Out No longer eligi ble based on patient's age to complete this topic HPV VACCINE Aged Out No longer eligi ble based on patient's age to complete this topic MENINGOCOCCAL (Group B) VACC INE SHARED DECISION-MAKING Aged Out No longer eligibl e based on patient's age to complete this topic MENINGOCOCCAL GROUPS A/C/Y/W VACCINE Aged Out No longer eligible b ased on patient's age to complete this topic PNEUMOCOCCAL VACCINE Aged Out No long er eligible based on patient's age to complete this topic Insurance MEDICAID - [place] Care Teams Bottle Gauger Relationship Specialty Start Date End Date Joanne Wharton MD [address] [place] [id number] PCP - General Pediatrics 12/10/12
--- OUTSIDE RECORDS SUMMARY | 2024-12-04 08:36 | XMS_ITS | Patient Health Record ---
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 Prediabetes: 5.7 - 6.4 Diabetes: >6.4 Glycemic control for adults with diabetes: <7.0 Vitamin B12* Reviewed date:09/29/2024 10:39:30 AM Interpretation: Performing Lab:[facility], [address] [facility], Phone - [phone], Director - PhDRosy Notes/Report: Vitamin B12 [phone] pg/mL Folate (Folic Acid), Serum* Reviewed date:09/29/2024 10:40:11 AM Interpretation: Performing Lab:[facility], [address] [facility], Phone - [phone], Director - Luther Notes/Report: Folate (Folic Acid), Serum 8.2 >3.0 ng/mL A serum folate concentration of less than 3.1 ng/mL is considered to represent clinical deficiency. CBC With Differential/Platel et* Reviewed date:09/29/2024 10:40:37 AM Interpretation: Performing Lab:[facility] [place], [address] [facility], Phone - [phone], Director - Luther Notes/Report: WBC 5.9 3.4-10.8 x10E3/uL RBC 5.21 3.77-5.28 x10E6/uL Hemoglobin 14.9 11.1-15.9 g/dL Hematocrit 45.2 34.0-46.6 % MCV 87 79-97 fL MCH 28.6 26.6-33.0 pg MCHC 33.0 31.5-35.7 g/dL RDW 12.8 11.7-15.4 % Platelets 213 150-450 x10E3/uL Neutrophils 59 Not Estab. % Lymphs 31 Not Estab. % Monocytes 6 Not Estab. % Eos 3 Not Estab. % Basos 1 Not Estab. % Neutrophils (Absolute) 3.5 1.4-7.0 x10E3/uL Lymphs (Absolute) 1.8 0.7-3.1 x10E3/uL Monocytes(Absolute) 0.3 0.1-0.9 x10E3/uL Eos (Absolute) 0.2 0.0-0.4 x10E3/uL Baso (Absolute) 0.0 0.0-0.2 x10E3/uL Immature Granulocytes 0 Not Estab. % Immature Grans (Abs) 0.0 0.0-0.1 x10E3/uL Vitamin D, 25-Hydroxy* Reviewed date:09/29/2024 10:39:15 AM Interpretation: Performing Lab:[facility] [place], [address] [facility], [place], Phone - [phone], Director - Luther Notes/Report: Vitamin D, 25-Hydroxy 22.1 30.0-100.0 ng/mL Vitamin D deficiency has been defined by the [place] [employer] and an Endocrine Society practice guideline as a level of serum 25-OH vitamin D less than 20 ng/mL (1,2). The Endocrine Society went on to further define vitamin D insufficiency as a level between 21 and 29 ng/mL (2). 1. IOM ([place] of Medicine). 2010. Dietary reference intakes for calcium and D. [place]: The National Academies Press. 2. Vu MF, Antonietta MCPHERSON, Ct DEWEY, et al. Evaluation, treatment, and prevention of vitamin D deficiency: an Endocrine Society clinical practice guideline. JCEM. 2010; 96(6):1911-30. TSH+Free T4* Reviewed date:09/29/2024 10:39:37 AM Interpretation: Performing Lab:[facility] [address] [place] [address], Phone - [phone], Director - [facility] Notes/Report: TSH 1.840 0.450-4.500 uIU/mL T4,Free(Direct) 1.07 0.82-1.77 ng/dL Lipid Panel* Reviewed date:09/29/2024 10:39:55 AM Interpretation: Performing Lab:[facility] [address] [place] [address], Phone - [phone], Director - [facility] Notes/Report: Cholesterol, Total 170 100-199 mg/dL Triglycerides 115 0-149 mg/dL HDL Cholesterol 44 >39 mg/dL VLDL Cholesterol Alonzo 21 5-40 mg/dL LDL Chol Calc (NIH) 105 0-99 mg/dL CMP 14 Comprehensive Metabol ic Panel* Reviewed date:09/29/2024 10:40:23 AM Interpretation: Performing Lab:[facility] [place], [address] [place] [address], Phone - [phone], Director - [facility] Notes/Report: Glucose 79 70-99 mg/dL BUN 9 6-20 mg/dL Creatinine 0.75 0.57-1.00 mg/dL eGFR 110 >59 mL/min/1.73 BUN/Creatinine Ratio 12 9-23 Sodium 137 134-144 mmol/L Potassium 4.7 3.5-5.2 mmol/L Chloride 100 96-106 mmol/L Carbon Dioxide, Total 22 20-29 mmol/L Calcium 9.6 8.7-10.2 mg/dL Protein, Total 7.4 6.0-8.5 g/dL Albumin 4.4 4.0-5.0 g/dL Globulin, Total 3.0 1.5-4.5 g/dL Bilirubin, Total 0.3 0.0-1.2 mg/dL Alkaline Phosphatase 81 44-121 IU/L AST (SGOT) 18 0-40 IU/L ALT (SGPT) 19 0-32 IU/L Reason For Referral No Information Medications Medication SIG (Take, Route, Frequency, Duration) Notes Start Date End Date Status Zoloft 100 MG 1.5 tablets (150mg) once daily Orally for 30 days Active ARIPiprazole 10 MG 1 tablet Orally Once a day for 30 days Active hydrOXYzine Pamoate 50 MG 1-2 capsule at night Orally Once a day for 30 days As needed sleep Active Ergocalciferol 1.25 MG (51896 UT) 1 capsule Orally once weekly Active buPROPion HCl ER (XL) 150 MG 1 tablet in the morning Orally Once a day for 30 days 11/27/2024 Active Albuterol Sulfate (sensor) 108 (90 Base) MCG/ACT 1-2 puffs as needed Inhalation every 4 hrs for 30 days Active Naproxen 500 MG 1 tablet with food or milk as needed Orally every 12 hrs for 30 days As needed BACK AND LEG PAIN 07/14/2024 Active Immunizations Vaccine Route Administration Date Status Comme nts FLU VAC NO PRSV 4VAL 6 mo+ IM Intramuscular 05/15/2023 Administered Pt tolerated injection well. Social History Tobacco Use: Social History Observation [...] Problem Status W/U Status Risk Notes Problem Vitamin D deficiency (96843453) Vitamin D insufficiency (E55.9) Active confirmed Problem Asthma (797634364) Asthma (J45.909) Active confirmed Problem Generalized anxiety disorder (15656099) MUSTAPHA (generalized anxiety disorder) (F41.1) Active confirmed Problem Overweight (988730605) Over weig ht (E66.3) Active confirmed Problem Obstructive sleep apnea syndrome (24309402) Sleep apnea in adult (G47.33) Active confirmed Problem Major depressive disorder (359171170) MDD (major depressive disorder) (F32.9) Active confirmed Problem Cerebral palsy (418392075) Cerebral palsy (G80.9) Active confirmed Problem Sciatica (72595734) Sciatica associated with disorder of lumbar spine, 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) Active confirmed Problem Pure hypercholesterolemia (459740503) Elevated LDL cholesterol level (E78.00) Active confirmed Problem Obesity (932443610) Obesity, unspecified classification, unspecified obesity type, unspecified whether serious comorbidity present (E66.9) Active confirmed Problem Mild depression (235954963) Mild depression (F32.0) Active confirmed Vital Signs Heart Rate 84 /min 11/27/2024 Temperature 97.4 degrees Fahrenheit 02/26/2024 Respiratory Rate 16 /min 09/25/2024 Oximetry 98 % 11/27/2024 Blood pressure diastolic 78 mm Hg 11/27/2024 Height 65 in 11/27/2024 Blood pressure systolic 110 mm Hg 11/27/2024 Weight 198 lbs 11/27/2024 BMI 32.95 kg/m2 11/27/2024 Encounters Encounter Location Date Provider Diagnosis [address] [address] 02/26/2024 Sri Storey Nutritional counseling Z71.3 ; MUSTAPHA (generalized anxiety disorder) F41.1 ; Mild depression F32.0 ; Vitamin D insufficiency E55.9 and Cerebral palsy G80.[address] [address] 03/31/2024 Buster Gomez MUSTAPHA (generalized anxiety disorder) F41.1 ; Viral URI with cough J06.9 ; Mild depression F32.0 ; Cerebral palsy G80.9 and Nutritional counseling Z71.[address] [address] 07/14/2024 Buster Gomez Sciatica associated with disorder of lumbar spine, right M54.31 ; Cerebral palsy G80.9 and Obesity, unspecified classification, unspecified obesity type, unspecified whether serious comorbidity present E66.[address] [address] 09/16/2024 Buster Gomez Left leg pain M79.605 ; Left leg swelling M79.89 ; Cerebral palsy G80.9 ; Sciatica associated with disorder of lumbar spine, right M54.31 and Nutritional counseling Z71.[address] [address] 09/25/2024 Thuan Knapp MUSTAPHA (generalized anxiety disorder) F41.1 ; MDD (major depressive disorder) F32.9 ; Nutritional counseling Z71.3 ; Elevated LDL cholesterol level E78.00 and Vitamin D insufficiency E55.[address] [address] 09/25/2024 Thuan Knapp MDD (major depressive disorder) F32.9 ; MUSTAPHA (generalized anxiety disorder) F41.1 ; Nutritional counseling Z71.3 ; Elevated LDL cholesterol level E78.00 and Vitamin D insufficiency E55.[address] [address] 10/23/2024 Thuan Knapp MUSTAPHA (generalized anxiety disorder) F41.1 ; Vitamin D insufficiency E55.9 ; Over weight E66.3 ; MDD (major depressive disorder) F32.9 ; Nutritional counseling Z71.3 and Elevated LDL cholesterol level E78.[address] [address] 11/27/2024 Thuan Knapp MUSTAPHA (generalized anxiety disorder) F41.1 ; Vitamin D insufficiency E55.9 ; Over weight E66.3 and MDD (major depressive disorder) F32.[address] [address] 03/16/2024 Sri Storey Mild depression F32.[address] [address] 06/18/2024 Tha Aparicio [address] [address] 09/23/2024 Buster Gomez [address] [address] 09/29/2024 Thuan Knapp Vitamin D deficiency E55.9 Assessments Encounter Date Diagnosis (ICD Code) Assessment Notes Treatment Notes Treatment Clinical Notes Section Notes 07/14/2024 Sciatica associated with disorder of lumbar spine, right (ICD-10 - M54.31) DISCUSSED STRETCHES, BODY MECHANICS, CORE EXERCISES, MEDITERRANEAN DIET. FURTHER EVALUATION IF NOT IMPROVED IN 6-8 WEES, 09/25/2024 MUSTAPHA (generalized anxiety disorder) (ICD-10 - F41.1) See assessment and plan for MDD 09/25/2024 MDD (major depressive disorder) (ICD-10 - F32.9) Duration (acute/chronic), stability (controlled/uncontrol led): Chronic, somewhat controlled with current medication regimen, still room for improvement, see HPI Current medications/efficacy: Somewhat, room for improvement Previous medication trials: Past concerning for activation symptoms with SNRI Past trials- Depakote, sertraline, lamictal- stopped due to noncompliance. Current/previous therapies: Not currently, not interested currently Examination as documented - see pertinent aspects of office visit documentation. Pertinent diagnostics: AGREEABLE TO LAB COLLECTION IN OFFICE TODAY Differential diagnoses: RECOMMENDATIONS: INCREASE sertraline as prescribed to assist with anxiety/depression - educated patient/guardian on adverse effects, risks and benefits, as well as alternative treatments Continue/modify other medications as prescribed - educated patient/guardian on adverse effects, risks and benefits, as well as alternative treatments Consume well balanced diet, preferably low in saturated fats (solid at room temperature, such as butter, margarine, Crisco, etc) and low in sodium (<2,000mg per day). Consume plenty of fruits/vegetables, healthy grains/whole grains, unsaturated/healthy fats (liquid at room temperature, such as olive oil, sunflower seed oil, canola, vegetable, etc.). Exercise regularly - Develop an exercise routine. 30 minutes of moderate exercise (walking at a brisk pace) 5 times per week is recommended. You should work hard enough to cause a sweat but still be able to talk with others while exercising. Exercise improves overall health - improves blood pressure and blood sugar, helps control weight, reduces stress, and improves mood. Practice stress reduction techniques, such as guided imagery, journaling, aromatherapy, acupuncture/acupressu re, deep breathing, etc. Practice healthy sleep hygiene - maintain regular routine, no caffeine after 1PM, no exercise 1-2 hours prior to bedtime, keep bedroom dark and cool, no TV or electronics while in bed. Consider melatonin as needed. Consider cognitive behavioral therapy for insomnia (CBT-I). Consider/Continue therapy. Consider/Continue substance cessation therapy as needed - contact office if desiring medication assisted therapy. Manage co-morbid conditions. Continue monitoring symptoms - report persistent or worsening/concerning symptoms to the office or go to the ER. For mental health CRISIS, please reach out to [phone] ([place] Suicide and Crisis Lifeline), 911, go to the emergency department, or contact the [facility] Crisis Unit/Team. Follow up as scheduled in 4 weeks or sooner if necessary. Follow up with PCP and/or other specialists as advised. NEXT STEP: Consider further medication adjustments as needed. 09/16/2024 Left leg swelling (ICD-10 - M79.89) IF DOPPER NEGATIVE WILL TRY LEG ELEVATION, LOW SALT DIET, INCREASE WATER INTAKE. 09/16/2024 Left leg pain (ICD-10 - M79.605) 09/25/2024 MDD (major depressive disorder) (ICD-10 - F32.9) 09/29/2024 Vitamin D deficiency (ICD-10 - E55.9) 10/23/2024 MUSTAPHA (generalized anxiety disorder) (ICD-10 - F41.1) See assessment and plan for MDD 11/27/2024 MUSTAPHA (generalized anxiety disorder) (ICD-10 - F41.1) See assessment and plan for MDD 02/26/2024 Nutritional counseling (ICD-10 - Z71.3) 03/16/2024 Mild depression (ICD-10 - F32.0) 03/31/2024 MUSTAPHA (generalized anxiety disorder) (ICD-10 - F41.1) 03/31/2024 Viral URI with cough (ICD-10 - J06.9) 07/14/2024 Cerebral palsy (ICD-10 - G80.9) 03/31/2024 Mild depression (ICD-10 - F32.0) 02/26/2024 MUSTAPHA (generalized anxiety disorder) (ICD-10 - F41.1) Pt reports that her anxiety is under control at this time. Pt has upcoming therapy appt scheudled. Mother and pt report that pt is tolerating medication well at this time. 11/27/2024 Vitamin D insufficiency (ICD-10 - E55.9) Duration (acute/chronic), stability (controlled/uncontrol led): Noted on labs collected in 09/2024, started on vitamin D supplementation, tolerating well without complication or complaint, see HPI Current medications/efficacy: Unknown until repeat labs are completed Previous medication trials: vitamin D supplementation Current/previous therapies: N/A Examination as documented - see pertinent aspects of office visit documentation. Pertinent diagnostics: LABS COMPLETED IN 09/2024, SEE CHART. Differential diagnoses: RECOMMENDATIONS: CONTINUE vitamin D supplementation as prescribed - educated patient/guardian on adverse effects, risks and benefits, as well as alternative treatments Continue/modify other medications as prescribed - educated patient/guardian on adverse effects, risks and benefits, as well as alternative treatments Consume well balanced diet, preferably low in saturated fats (solid at room temperature, such as butter, margarine, Crisco, etc) and low in sodium (<2,000mg per day). Consume plenty of fruits/vegetables, healthy grains/whole grains, unsaturated/healthy fats (liquid at room temperature, such as olive oil, sunflower seed oil, canola, vegetable, etc.). Exercise regularly - Develop an exercise routine. 30 minutes of moderate exercise (walking at a brisk pace) 5 times per week is recommended. You should work hard enough to cause a sweat but still be able to talk with others while exercising. Exercise improves overall health - improves blood pressure and blood sugar, helps control weight, reduces stress, and improves mood. Practice stress reduction techniques, such as guided imagery, journaling, aromatherapy, acupuncture/acupressu re, deep breathing, etc. Practice healthy sleep hygiene - maintain regular routine, no caffeine after 1PM, no exercise 1-2 hours prior to bedtime, keep bedroom dark and cool, no TV or electronics while in bed. Consider melatonin as needed. Consider cognitive behavioral therapy for insomnia (CBT-I). Consider/Continue therapy. Consider/Continue substance cessation therapy as needed - contact office if desiring medication assisted therapy. Manage co-morbid conditions. Continue monitoring symptoms - report persistent or worsening/concerning symptoms to the office or go to the ER. For mental health CRISIS, please reach out to [phone] ([place] Suicide and Crisis Lifeline), 911, go to the emergency department, or contact the [facility] Crisis Unit/Team. Follow up as scheduled or sooner if necessary. Follow up with PCP and/or other specialists as advised. NEXT STEP: Consider repeating labs in about 12/202410/23/2024 Vitamin D insufficiency (ICD-10 - E55.9) Duration (acute/chronic), stability (controlled/uncontrol led): Noted on labs collected in 09/2024, started on vitamin D supplementation, tolerating well without complication or complaint, see HPI Current medications/efficacy: Unknown until repeat labs are completed Previous medication trials: vitamin D supplementation Current/previous therapies: N/A Examination as documented - see pertinent aspects of office visit documentation. Pertinent diagnostics: LABS COMPLETED IN 09/2024, SEE CHART. Differential diagnoses: RECOMMENDATIONS: CONTINUE vitamin D supplementation as prescribed - educated patient/guardian on adverse effects, risks and benefits, as well as alternative treatments Continue/modify other medications as prescribed - educated patient/guardian on adverse effects, risks and benefits, as well as alternative treatments Consume well balanced diet, preferably low in saturated fats (solid at room temperature, such as butter, margarine, Crisco, etc) and low in sodium (<2,000mg per day). Consume plenty of fruits/vegetables, healthy grains/whole grains, unsaturated/healthy fats (liquid at room temperature, such as olive oil, sunflower seed oil, canola, vegetable, etc.). Exercise regularly - Develop an exercise routine. 30 minutes of moderate exercise (walking at a brisk pace) 5 times per week is recommended. You should work hard enough to cause a sweat but still be able to talk with others while exercising. Exercise improves overall health - improves blood pressure and blood sugar, helps control weight, reduces stress, and improves mood. Practice stress reduction techniques, such as guided imagery, journaling, aromatherapy, acupuncture/acupressu re, deep breathing, etc. Practice healthy sleep hygiene - maintain regular routine, no caffeine after 1PM, no exercise 1-2 hours prior to bedtime, keep bedroom dark and cool, no TV or electronics while in bed. Consider melatonin as needed. Consider cognitive behavioral therapy for insomnia (CBT-I). Consider/Continue therapy. Consider/Continue substance cessation therapy as needed - contact office if desiring medication assisted therapy. Manage co-morbid conditions. Continue monitoring symptoms - report persistent or worsening/concerning symptoms to the office or go to the ER. For mental health CRISIS, please reach out to [phone] (National Suicide and Crisis Lifeline), 911, go to the emergency department, or contact the [facility] Crisis Unit/Team. Follow up as scheduled or sooner if necessary. Follow up with PCP and/or other specialists as advised. NEXT STEP: Consider repeating labs in about 12/202409/25/2024 Nutritional counseling (ICD-10 - Z71.3) 09/25/2024 MUSTAPHA (generalized anxiety disorder) (ICD-10 - F41.1) 07/14/2024 Obesity, unspecified classification, unspecified obesity type, unspecified whether serious comorbidity present (ICD-10 - E66.9) 09/16/2024 Cerebral palsy (ICD-10 - G80.9) 09/25/2024 Elevated LDL cholesterol level (ICD-10 - E78.00) AGREEABLE TO LAB COLLECTION IN OFFICE TODAY 09/16/2024 Sciatica associated with disorder of lumbar spine, right (ICD-10 - M54.31) 02/26/2024 Mild depression (ICD-10 - F32.0) Pt and mother report that moods are under control at this time and pt is tolerating meds well. Pt denies SI/HI at this time. 11/27/2024 Over weight (ICD-10 - E66.3) 09/25/2024 Nutritional counseling (ICD-10 - Z71.3) 10/23/2024 Over weight (ICD-10 - E66.3) 10/23/2024 MDD (major depressive disorder) (ICD-10 - F32.9) Duration (acute/chronic), stability (controlled/uncontrol led): Chronic, somewhat improved with recent medication adjustments, still room for improvement, see HPI Current medications/efficacy: Somewhat, room for improvement Previous medication trials: Past concerning for activation symptoms with SNRI Past trials- Depakote, sertraline, lamictal- stopped due to noncompliance. Current/previous therapies: Not currently, not interested currently Examination as documented - see pertinent aspects of office visit documentation. Pertinent diagnostics: LABS COMPLETED IN 09/2024, SEE CHART. Differential diagnoses: RECOMMENDATIONS: Discuss with boyfriend that messaging frequently is overwhelming for patient - hoping this will help with some of patient's reported irritability INCREASE sertraline as prescribed to assist with anxiety/depression - educated patient/guardian on adverse effects, risks and benefits, as well as alternative treatments Continue/modify other medications as prescribed - educated patient/guardian on adverse effects, risks and benefits, as well as alternative treatments Consume well balanced diet, preferably low in saturated fats (solid at room temperature, such as butter, margarine, Crisco, etc) and low in sodium (<2,000mg per day). Consume plenty of fruits/vegetables, healthy grains/whole grains, unsaturated/healthy fats (liquid at room temperature, such as olive oil, sunflower seed oil, canola, vegetable, etc.). Exercise regularly - Develop an exercise routine. 30 minutes of moderate exercise (walking at a brisk pace) 5 times per week is recommended. You should work hard enough to cause a sweat but still be able to talk with others while exercising. Exercise improves overall health - improves blood pressure and blood sugar, helps control weight, reduces stress, and improves mood. Practice stress reduction techniques, such as guided imagery, journaling, aromatherapy, acupuncture/acupressu re, deep breathing, etc. Practice healthy sleep hygiene - maintain regular routine, no caffeine after 1PM, no exercise 1-2 hours prior to bedtime, keep bedroom dark and cool, no TV or electronics while in bed. Consider melatonin as needed. Consider cognitive behavioral therapy for insomnia (CBT-I). Consider/Continue therapy. Consider/Continue substance cessation therapy as needed - contact office if desiring medication assisted therapy. Manage co-morbid conditions. Continue monitoring symptoms - report persistent or worsening/concerning symptoms to the office or go to the ER. For mental health CRISIS, please reach out to [phone] (National Suicide and Crisis Lifeline), 911, go to the emergency department, or contact the [facility] Crisis Unit/Team. Follow up as scheduled in 4 weeks or sooner if necessary. Follow up with PCP and/or other specialists as advised. NEXT STEP: Consider further medication adjustments as needed. 03/31/2024 Cerebral palsy (ICD-10 - G80.9) FORM COMPLETED FOR MCT 03/31/2024 Nutritional counseling (ICD-10 - Z71.3) DISCUSS WEIGHT LOSS AT F/U APPT 02/26/2024 Vitamin D insufficiency (ICD-10 - E55.9) 10/23/2024 Nutritional counseling (ICD-10 - Z71.3) 11/27/2024 MDD (major depressive disorder) (ICD-10 - F32.9) Duration (acute/chronic), stability (controlled/uncontrol led): Chronic, somewhat improved with recent medication adjustments, still room for improvement, see HPI Current medications/efficacy: Somewhat, room for improvement Previous medication trials: Past concerning for activation symptoms with SNRI Past trials- Depakote, sertraline, lamictal- stopped due to noncompliance. Current/previous therapies: Not currently, not interested currently Examination as documented - see pertinent aspects of office visit documentation. Pertinent diagnostics: LABS COMPLETED IN 09/2024, SEE CHART. Differential diagnoses: RECOMMENDATIONS: Discuss with boyfriend that messaging frequently is overwhelming for patient - hoping this will help with some of patient's reported irritability START bupropion as prescribed to assist with depression - educated patient/guardian on adverse effects, risks and benefits, as well as alternative treatments Continue/modify other medications as prescribed - educated patient/guardian on adverse effects, risks and benefits, as well as alternative treatments Consume well balanced diet, preferably low in saturated fats (solid at room temperature, such as butter, margarine, Crisco, etc) and low in sodium (<2,000mg per day). Consume plenty of fruits/vegetables, healthy grains/whole grains, unsaturated/healthy fats (liquid at room temperature, such as olive oil, sunflower seed oil, canola, vegetable, etc.). Exercise regularly - Develop an exercise routine. 30 minutes of moderate exercise (walking at a brisk pace) 5 times per week is recommended. You should work hard enough to cause a sweat but still be able to talk with others while exercising. Exercise improves overall health - improves blood pressure and blood sugar, helps control weight, reduces stress, and improves mood. Practice stress reduction techniques, such as guided imagery, journaling, aromatherapy, acupuncture/acupressu re, deep breathing, etc. Practice healthy sleep hygiene - maintain regular routine, no caffeine after 1PM, no exercise 1-2 hours prior to bedtime, keep bedroom dark and cool, no TV or electronics while in bed. Consider melatonin as needed. Consider cognitive behavioral therapy for insomnia (CBT-I). Consider/Continue therapy. Consider/Continue substance cessation therapy as needed - contact office if desiring medication assisted therapy. Manage co-morbid conditions. Continue monitoring symptoms - report persistent or worsening/concerning symptoms to the office or go to the ER. For mental health CRISIS, please reach out to [phone] (National Suicide and Crisis Lifeline), 911, go to the emergency department, or contact the [facility] Crisis Unit/Team. Follow up as scheduled in 4 weeks or sooner if necessary. Follow up with PCP and/or other specialists as advised. NEXT STEP: Consider further medication adjustments as needed. 09/25/2024 Elevated LDL cholesterol level (ICD-10 - E78.00) 09/16/2024 Nutritional counseling (ICD-10 - Z71.3) 09/25/2024 Vitamin D insufficiency (ICD-10 - E55.9) AGREEABLE TO LAB COLLECTION IN OFFICE TODAY 09/25/2024 Vitamin D insufficiency (ICD-10 - E55.9) 10/23/2024 Elevated LDL cholesterol level (ICD-10 - E78.00) 02/26/2024 Cerebral palsy (ICD-10 - G80.9) 02/26/2024 Other Discussed treat ment planDiscussed sleep hygiene and caffeine intakeReturn to clinic 8-12 weeksEncouraged counselingDiscussed treatment plan; patient is agreeable and accepting of treatment plan. Patient denies further questions or concerns at this time. The Patient/Guardian asked appropriate questions, appeared to understand the answers, and decided to accept the treatment and continue being followed.The Patient/Guardian is aware of the need to contact the office or return for an earlier appointment if any problems or concerns arise. May also contact the 24-hour crisis hotline ([facility]), refer to the closest emergency room or call 911 if new symptoms arise of existing symptoms worsen; the Patient/Guardian is aware that this would apply to symptoms such as: suicidal ideation, homicidal ideation, high risk behaviors, manic symptoms, psychotic symptoms, physical symptoms, or any other symptoms that may be dangerous to self or others. Plan Of Treatment Future Test Test Name Order Date Bilateral Venous Doppler of Lower Extrem ities 09/16/2024 Insurance Providers Payer Name Payer Address Payer Phone Subscriber Number Group Number Insured Name Patient Relationship to Insured Coverage Start Date Coverage End Date MEDICARE PART A [address] [place] [phone] [id number] Sae Alvarez Self - patient is the insured 1 MEDICAID [address] [place] [phone] [id number] Sae Alvarez Self - patient is the insured 1 Medical (General) History Medical History History ICD Code cerebral palsy chronic abdominal pain asthma Surgical History Surgery Date(Month/Year) Hospitalization History Reason Date(Month/Year) child 2016
== END 2024-12-04 08:32 | disposition home or self-care (01) ==
LOC: ANHIMG 08:33
PROVIDERS: PCP Internal Medicine; Visit Provider Nurse Practitioner
DX: R92.8 Other abnormal and inconclusive findings on diagnostic imaging of breast (principal)
CPT/HCPCS: 76642

== ENCOUNTER 2025-05-21 10:54 | Emergency (ER) | payer MEDICARE, MEDICAID, SELFPAY ==
--- NOTE | ~2025-05-21 | CT_ITS ---
EXAMINATION: CT brain wo con DATE: 05/21/2025 13:23 INDICATION: Syncope versus seizure TECHNIQUE: Computed tomography (CT) of the head was performed without intravenous contrast. The dose-length product was 529.67 mGy-cm. COMPARISON: May 31, 2025 FINDINGS: No gross intracranial mass, mass effect or hemorrhage. No large acute ischemic event. Calvarial structures appear intact. IMPRESSION: 1. No gross acute intracranial process. 2. For new onset or refractory seizure disorder, correlation with seizure protocol brain MRI recommended for optimal sensitivity. Reviewed, dictated and finalized at location A. RED ENTRANCE MONITOR IMPRESSION: 1. No gross acute intracranial process. 2. For new onset or refractory seizure disorder, correlation with seizure gabrielle col brain MRI recommended for optimal sensitivity.
--- NOTE | ~2025-05-21 | CT_ITS ---
EXAMINATION: CT abdomen pelvis w con DATE: 05/21/2025 13:23 INDICATION: Left lower quadrant abdominal pain TECHNIQUE: Computed tomography (CT) of the abdomen and pelvis was performed with 100 mL Omnipaque-350 intravenous contrast. Automated exposure control and iterative reconstruction technique were employed. The dose-length product was 1381.09 mGy-cm. COMPARISON: None FINDINGS: Visualized mid to lower lungs are clear. Heart size is normal. No pericardial or pleural effusion. Liver, gallbladder, spleen, pancreas, bilateral adrenal glands and kidneys are normal. Bowels including the appendix are normal. T-shaped IUD in expected position within the anteverted uterus. Bladder and bilateral adnexa are unremarkable. No free intraperitoneal gas or fluid. No pathologically enlarged abdominal or pelvic lymphadenopathy. Mild lumbar and lower thoracic spondylosis. IMPRESSION: 1. No acute intra-abdominal/pelvic process. 2. IUD in expected position. Reviewed, dictated and finalized at location A. [employer]ENTATIVE GOVERNMENT RELATIONS
[2025-05-21 10:52] VITALS: BP 121/80; PULSE 87; RESP 16; TEMP 36.4; O2SAT 100
--- NOTE | 2025-05-21 11:00 | ECG_ITS ---
Test Date: 2025-05-21 11:02:31 Measurements Intervals [place] Rate: 86 P: 47 NM: 165 QRS: 24 QRSD: 86 T: 30 QT: 341 QTc: 410 Interpretive Statements SINUS RHYTHM LOW QRS VOLTAGE BORDERLINE ECG Compared to ECG 08/31/2024 22:46:22 No significant changes Electronically Signed On 05-21-2025 13:25:21 WIRELESS OPERATOR by Calderon Dumont M.D.
[2025-05-21 11:19] VITALS: PULSE 90; RESP 14; O2SAT 100
--- NOTE | 2025-05-21 11:24 | ED_ITS ---
HPI - Seizure General Chief Complaint: Seizure Stated Complaint: seizure Time Seen by Provider: 05/21/25 10:58 Source: patient and EMS Mode of arrival: EMS Limitations: no limitations History of Present Illness HPI Narrative: This is a 29-year-old female with history of seizures who presents to the ED via EMS for possible seizure activity. Per EMS, patient was found unresponsive at work, no known shaking activity. She does have a history of seizures but has not been taking medications for them. She is unsure if she has been prescribed any for them. She reports a mild headache at this time. Also reports that for the past few days she has been having left lower quadrant abdominal pain with some blood in stool. Has had some intermittent nausea but no vomiting. Unsure of her last period. Related Data Allergies Allergy/AdvReac Type Severity Reaction Status Date / Time No Known Allergies Allergy Verified 08/31/24 23:14 Review of Systems 2 Review of Systems: Gen.: Denies fevers or chills Eyes: Denies eye pain or visual change ENT: Denies congestion Respiratory: Denies shortness of breath or cough CV: Denies chest pain or palpitations GI: As per HPI denies burning, urgency, frequency or hematuria Musculoskeletal: Denies back pain or muscle pain Neuro: Denies numbness, tingling, weakness or focal weakness Skin: Denies rash Except as documented, all other systems reviewed and negative Exam 2 Narrative: APPEARANCE: No acute distress, nontoxic, resting in bed EYES: EOMI HEENT: Normocephalic, atraumatic, OMM RESPIRATORY: No respiratory distress Clear to auscultation bilaterally with no rhonchi wheezing or rales. CARDIOVASCULAR: Regular rate and rhythm without murmurs rubs or gallops. ABDOMINAL: Soft, mild left lower quadrant tenderness to palpation, nondistended, no rebound or guarding MUSCULOSKELETAl: Moves all extremities. No clubbing, cyanosis or edema. NEURO: Awake and alert. Following commands, speech normal, no focal deficits SKIN:: Warm, dry. No rashes lesions or abrasions PSYCHIATRIC: Normal affect/mood, Course Vital Signs Vital signs: Vital Signs Temperature 97.6 F 05/21/25 10:52 Pulse Rate 87 05/21/25 10:52 Respiratory Rate 16 05/21/25 10:52 Blood Pressure 121/80 05/21/25 10:52 Pulse Oximetry 100 05/21/25 10:52 Oxygen Delivery Room Air 05/21/25 10:52 Temperature 97.6 F 05/21/25 10:52 Pulse Rate 81 05/21/25 13:07 Respiratory Rate 17 05/21/25 13:07 Blood Pressure 129/68 05/21/25 13:06 Pulse Oximetry 100 05/21/25 13:07 Oxygen Delivery Room Air 05/21/25 11:42 MDM - Seizure MDM Narrative Medical decision making narrative: 29-year-old female Presenting for possible seizure activity and abdominal pain. On initial evaluation patient was in no acute distress afebrile, hemodynamic stable. Differentials include but are not limited to: Ovarian torsion, ovarian cyst, ectopic , Diverticulitis, constipation, ureterolithiasis, enterocolitis, colitis, obstruction, cancer, seizure disorder, pseudoseizures, syncope Notable exam findings: Nonfocal neuro exam. Mild left lower quadrant tenderness to palpation. I personally reviewed the patient's lab result. Notable lab findings: CBC and CMP without significant abnormalities. Lactic acid within normal limits. UA with leukocyte esterase and WBCs but no bacteria. I personally reviewed the patient's images. Notable imaging findings: CT head and CT abdomen/pelvis showed no acute process. I personally reviewed the patient's EKGs: 05/21/2025 at 11:02 a.m.: Normal sinus rhythm, normal axis, normal intervals, no acute ST or T-wave changes Patient remained AO x4 in the ED and did not have any additional seizure activity. 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 Patient was having some rectal bleeding but was deferring examination at this time. She already has a follow-up with GI scheduled in the next month which I encouraged her to go to. Patient and Mother were agreeable to this plan. Given strict return precautions. Medical Records Attestation: I reviewed the patient's medical records. Lab Data Attestation: I reviewed the patient's lab results. 05/21/25 11:31 05/21/25 11:31 Labs: Lab Results 05/21/25 05/21/25 05/21/25 Range/Units 11: 13:05 13:07 WBC 7.6 (4.5-10.0) K/mm3 RBC 4.92 (4.2-5.4) M/mm3 Hgb 14.4 (12.0-15.0) g/dL Hct 43.7 (37.0-47.0) % MCV 88.8 (80-100) fl MCH 29.3 (26-34) pg MCHC 33.0 (32-36) g/dl RDW 12.8 (11.5-14.5) % Plt Count 204 (150-375) k/mm3 MPV 9.2 (7.4-10.4) fl Immature Gran % (Auto) 0.4 (0-0.5) % Neut % (Auto) 71.8 (45.5-73.1) % Lymph % (Auto) 22.1 (18.3-44.2) % Bell % (Auto) 4.5 (2.6-8.5) % Eos % (Auto) 0.8 (0-4.4) % Baso % (Auto) 0.4 (0.2-1.2) % Lymph # (Auto) 1.67 (0.9-3.2) K/mm3 Bell # (Auto) 0.3 (0.1-0.6) K/mm3 Eos # (Auto) 0.1 (0-0.3) K/mm3 Baso # (Auto) 0.0 (0.0-0.1) K/mm3 Abs Immat Gran (auto) 0.03 (0.00-0.031) K/mm3 Absolute Neuts (auto) 5.4 (1.3-6.7) K/mm3 Absolute Nucleated RBC 0.000 (0.0-0.012) K/mm3 Nucleated RBC % 0.0 (0.0-0.2) % Sodium 137 (137-145) mmol/L Potassium 4.3 (3.4-5.0) mmol/L Chloride 103 (98-107) mmol/L Carbon Dioxide 26 (22-30) mmol/L Anion Gap 8 (4-12) mmol/L BUN 12 (7-17) mg/dL Creatinine 0.81 (0.7-1.0) mg/dL Estim Creat Clear Calc 98 ml/min Estimated GFR > 60 (59 - ) Glucose 93 (65-110) mg/dL Lactic Acid 1.1 (0.7-2.0) mmol/L Calcium 9.0 (8.4-10.2) mg/dL Total Bilirubin 0.5 (0.2-1.3) mg/dL AST 27 (14-36) U/L ALT 37 H (6-35) U/L Alkaline Phosphatase 73 (38-126) U/L Total Protein 7.8 (6.3-8.2) g/dL Albumin 4.4 (3.5-5.1) g/dL Lipase 35 (23-300) U/L Urine Color Yellow (Yellow) Urine Appearance Clear (Clear) Urine pH 7.0 (5.0-9.0) Ur Specific [place] 1.014 (1.001-1.035) Urine Protein Negative (Negative) mg/dL Urine Glucose (UA) Negative (Negative) mg/dL Urine Ketones Negative (Negative) mg/dL Ur Blood (Man) Negative (Negative) Urine Nitrate Negative (Negative) Urine Bilirubin Negative (Negative) Urine Urobilinogen 0.2 (<2.0) mg/dL Leukocyte Esterase Rfl 1+ H (Negative) DARRYL/UL Urine RBC 0-2 (0-2) /hpf Urine WBC 11-20 H (0-3) /hpf Ur Squamous Epith Cells Moderate (Few) /hpf Urine Bacteria None seen /hpf Urine Casts 0-2 POC Urine HCG, Qual Negative (Negative) Discharge Plan Discharge Clinical Impression: Rectal bleeding Syncope Qualifiers: Syncope type: unspecified Qualified Code(s): R55 - Syncope and collapse Abdominal pain Qualifiers: Abdominal location: left lower quadrant Qualified Code(s): R10.32 - Left lower quadrant pain Patient Disposition: Home Condition: Stable Instructions: Antibiotic Form, Syncope (ED), Nonepileptic Seizures (ED), Abdominal Pain (ED) Additional Instructions: CTs of your head and abdomen showed no acute abnormalities. Your rectal bleeding needs to be evaluated further with a colonoscopy. You were given a referral to , neurology, to further discuss your recently increased seizure activity. Continue to follow-up with your psychiatrist as scheduled. Return to the ED for any new or worsening symptoms. Patient Language: Uzbek Prescriptions: No Action amoxicillin-pot clavulanate 875-125 mg tablet 1 tablet PO Q12H 7 Days Qty: 14 0RF fluticasone propionate [Flonase Allergy Relief] 50 mcg/actuation spray,suspension 1 spray intranasal BID Qty: 16 0RF Rx Instructions: administer into each nostril Follow-up/Referrals: Buster Gomez MD [Primary Care Provider, Hospitalist] Stand Alone Forms: Work/School Release IP
[2025-05-21 11:30] VITALS: PULSE 87; RESP 15; O2SAT 100
[2025-05-21 11:40] LABS: Hematocrit 43.7 % (37.0-47.0); Hemoglobin 14.4 g/dL (12.0-15.0); Immature Granulocyte Percent A 0.4 % (0-0.5); Lymphocytes Absolute Auto 1.67 K/mm3 (0.9-3.2); Mean Corpuscular HGB Conc 33.0 g/dl (32-36); Mean Corpuscular Hemoglobin 29.3 pg (26-34); Mean Corpuscular Volume 88.8 fl (80-100); Nucleated Red Blood Cells Absolute Auto 0.000 K/mm3 (0.0-0.012); Nucleated Red Blood Cells Perc 0.0 % (0.0-0.2); Platelet Count Result 204 k/mm3 (150-375); Red Blood Count 4.92 M/mm3 (4.2-5.4); White Blood Count 7.6 K/mm3 (4.5-10.0)
[2025-05-21 12:03] LABS: Alanine Aminotransferase 37 U/L (6-35); Albumin Level 4.4 g/dL (3.5-5.1); Alkaline Phosphatase 73 U/L (38-126); Anion Gap 8 mmol/L (4-12); Aspartate Amino Transferase 27 U/L (14-36); Bilirubin,Total 0.5 mg/dL (0.2-1.3); Blood Urea Nitrogen 12 mg/dL (7-17); Calcium 9.0 mg/dL (8.4-10.2); Carbon Dioxide 26 mmol/L (22-30); Chloride 103 mmol/L (98-107); Estimated CRCL calculation 98 ml/min; Estimated Glomerular Filt Rate > 60; Glucose 93 mg/dL (65-110); Lipase 35 U/L (23-300); Potassium 4.3 mmol/L (3.4-5.0); Sodium 137 mmol/L (137-145); Total Protein 7.8 g/dL (6.3-8.2)
[2025-05-21 12:06] VITALS: PULSE 85; RESP 17; O2SAT 100
[2025-05-21 13:06] VITALS: BP 129/68; PULSE 90; RESP 16; O2SAT 100
[2025-05-21 13:07] VITALS: PULSE 81; RESP 17; O2SAT 100
[2025-05-21 13:09] LABS: BEDSIDEPREGUCG Negative (Negative)
[2025-05-21 13:17] LABS: Add Urine Microscopic? YES; Appearance Urine Clear (Clear); Glucose Urine UA Negative (Negative); Leukocyte Esterase Ur 1+ LEU/UL (Negative); Nitrate Urine Negative (Negative); Non Pathogenic Casts 0-2; Specific Grav Ur 1.014 (1.001-1.035)
== END 2025-05-21 14:09 | disposition home or self-care (01) ==
PROVIDERS: Emergency Provider Student in an Organized Health Care Education/Training Program; PCP Internal Medicine
DX: R55 Syncope and collapse (principal); R10.32 Left lower quadrant pain; K62.5 Hemorrhage of anus and rectum
CPT/HCPCS: 36415; 70450; 74177; 80053; 81001; 81025; 83605; 83690; 85025; 93005; 99284; Q9967